=== PATIENT | female | born 1960 | race Caucasian/White ===

== ENCOUNTER 2016-12-29 10:24 | Emergency (ER) | payer BC, SELFPAY | END 2016-12-29 12:46 | disposition home or self-care (01) | LOC: ERS 10:24 | DX: J11.1 Influenza due to unidentified influenza virus with other respiratory manifestations (principal); E03.9 Hypothyroidism, unspecified; E78.5 Hyperlipidemia, unspecified; E11.9 Type 2 diabetes mellitus without complications; F32.9 Major depressive disorder, single episode, unspecified; F17.210 Nicotine dependence, cigarettes, uncomplicated | CPT/HCPCS: 87081; 87430; 99283 ==

== ENCOUNTER 2017-01-09 06:44 | Emergency (ER) | payer SELFPAY ==
[2017-01-09] MEDS ORDERED: Ibuprofen 800 MG TAB ONE (07:15)
== END 2017-01-09 08:18 | disposition home or self-care (01) ==
LOC: ERS 06:44
DX: J02.9 Acute pharyngitis, unspecified (principal); E03.9 Hypothyroidism, unspecified; E78.5 Hyperlipidemia, unspecified; E11.9 Type 2 diabetes mellitus without complications; F32.9 Major depressive disorder, single episode, unspecified; F17.210 Nicotine dependence, cigarettes, uncomplicated
CPT/HCPCS: 87081; 87430; 99283

== ENCOUNTER 2017-05-15 05:21 | Emergency (ER) | payer SELFPAY ==
[2017-05-15] MEDS ORDERED: Dexamethasone 4 mg/ml Vial ONE (07:16)
== END 2017-05-15 07:45 | disposition home or self-care (01) ==
LOC: ERS 05:21
DX: J02.9 Acute pharyngitis, unspecified (principal); E03.9 Hypothyroidism, unspecified; E78.5 Hyperlipidemia, unspecified; E11.9 Type 2 diabetes mellitus without complications; F32.9 Major depressive disorder, single episode, unspecified; F17.210 Nicotine dependence, cigarettes, uncomplicated; Z79.84 Long term (current) use of oral hypoglycemic drugs; Z79.899 Other long term (current) drug therapy
CPT/HCPCS: 36416; 87081; 87430; 96372; J1100

== ENCOUNTER 2017-11-03 07:05 | Emergency (ER) | payer OTHER, SELFPAY ==
[2017-11-03] MEDS ORDERED: diphenhydrAMINE 50 MG/ML VIAL ONE (07:50)
[2017-11-03] MEDS ORDERED: Metoclopramide HCl 10 MG/2 ML VIAL ONE (07:50)
[2017-11-03] MEDS ORDERED: Ketorolac Tromethamine 30 MG/ML VIAL ONE (07:50)
== END 2017-11-03 09:23 | disposition home or self-care (01) ==
LOC: ERS 07:05
DX: G43.909 Migraine, unspecified, not intractable, without status migrainosus (principal); E03.9 Hypothyroidism, unspecified; E78.5 Hyperlipidemia, unspecified; E11.9 Type 2 diabetes mellitus without complications; F32.9 Major depressive disorder, single episode, unspecified; F17.210 Nicotine dependence, cigarettes, uncomplicated; Z79.899 Other long term (current) drug therapy; Z79.84 Long term (current) use of oral hypoglycemic drugs
CPT/HCPCS: 96365; 96375; J1200; J1885; J2765

== ENCOUNTER 2018-08-15 07:38 | Emergency (ER) | payer OTHER ==
--- NOTE | 2018-08-15 08:45 | RAD ---
XR Chest Pa Lat STANDARD HISTORY: Cough COMPARISON: 07/14/2016 FINDINGS: The heart size is normal. The lungs are well expanded without focal areas of consolidation, pneumothorax or pleural effusions. There is linear scarring in the right lower lung. IMPRESSION: No radiographic evidence of acute cardiopulmonary process.
== END 2018-08-15 09:21 | disposition home or self-care (01) ==
LOC: ERS 07:38
DX: J20.9 Acute bronchitis, unspecified (principal); F32.9 Major depressive disorder, single episode, unspecified; F17.210 Nicotine dependence, cigarettes, uncomplicated
CPT/HCPCS: 71046

== ENCOUNTER 2018-09-30 22:46 | Inpatient (IN) | payer OTHER, SELFPAY ==
--- NOTE | 2018-09-30 23:40 | RAD ---
Exam: Chest one view HISTORY:Fever Comparison: 07/14/2016, 08/15/2018 FINDINGS: Cardiac silhouette:Upper normal Pulmonary vessels: Normal Costophrenic angles: Clear LUNGS: Chronic changes of the lung parenchyma. Superimposed interstitial opacities. Stable mild eleva tion of the right hemidiaphragm. Pneumothorax: None Osseous abnormalities: None IMPRESSION: 1. Chronic changes along parenchyma. Superimposed interstitial opacities may represent infiltrate. 2. Continued surveillance.
[2018-09-30 23:43] LABS: #Lymphocytes 3.6 thou/uL (1.20-3.40); #Monocytes 1.6 thou/uL (0.11-0.59); #Neutrophils 12.8 thou/uL (1.40-6.50); %Basophils 0.2 % (0.0-1.0); %Eosinophils 0.2 % (0.0-10.0); %Lymphocytes 19.7 % (21.0-51.0); %Monocytes 8.8 % (0.0-10.0); Hemoglobin 9.9 g/dL (12.0-16.0); Mean Corpuscular HGB CONC 31.2 g/dL (32.0-36.0); Mean Corpuscular Hemoglobin 23.6 pg (27.0-31.0); Mean Corpuscular Volume 75.5 fL (78.0-98.0); Mean Platelet Volume 8.1 fL (7.4-10.4); Platelet Count 263 thou/uL (130-400); RBC Distribution Width 14.9 % (11.5-14.5); Red Blood Cell (RBC) Count 4.18 mill/uL (4.20-5.40); White Blood Cell (WBC) Count 18.1 thou/uL (4.8-10.8)
[2018-09-30] MEDS ORDERED: diphenhydrAMINE 50 MG/ML VIAL ONE (23:49)
[2018-09-30] MEDS ORDERED: Metoclopramide HCl 10 MG/2 ML VIAL ONE (23:49)
[2018-10-01 00:06] LABS: ALT (SGPT) 29 U/L (8-55); AST (SGOT) 37 U/L (5-34); Albumin 3.5 g/dL (3.5-5.0); Alkaline Phosphatase 130 U/L (40-150); Anion Gap 10 mmol/L (10-20); BUN (Urea Nitrogen) 11 mg/dL (9.8-20.1); Bilirubin, Total 0.7 mg/dL (0.2-1.2); Calc. Creatinine Clearance 0 mL/min (70-130); Calcium 8.9 mg/dL (7.8-10.44); Carbon Dioxide 23 mmol/L (22-29); Chloride 102 mmol/L (98-107); Estimated GFR-MDRD 80; Glucose 115 mg/dL (70-105); Protein, Total 7.5 g/dL (6.0-8.3); Sodium 131 mmol/L (136-145)
[2018-10-01 00:14] LABS: Bilirubin Negative (Negative); Blood, Urine Negative (Negative); Clarity Clear (Clear); Glucose, Urine (Dipstick) Normal (Negative); Leukocyte Negative Leu/uL (Negative); Nitrite Negative (Negative); Protein, Urine (Dipstick) 20 mg/dL (Neg-Trace); Urobilinogen Greater than 12 mg/dL (Less than 2)
[2018-10-01] MEDS ORDERED: Azithromycin 500 MG VIAL ONE (01:34)
[2018-10-01] MEDS ORDERED: cefTRIAXone\\ROCEPHIN 2 GM VIAL ONE (01:34)
--- NOTE | 2018-10-01 07:27 | CT ---
PRELIMINARY REPORT/[facility]/EMERGENCY AFTER HOURS PROCEDURE: EXAM: CT Head Without Contrast EXAM DATE/TIME: 10/01/2018 12:32 AM CLINICAL HISTORY: 58 years old, female; Headache; Patient HX: Patient presents for worsening migraine that began yesterday. Pain is on both sides of head, intermittent, aching. Took Tylenol yesterday. Pain now 8/10 . Has not had a migraine in years. Reports photophobia. No vision changes or phonophobia. Improves with laying down, dark room. Worsens with sitting up. Also notes fever/chills/sweating that began yesterday as well. No neck rigidity or pain. Has chronic cough, no change in sputum. TECHNIQUE: Imaging protocol: Axial computed tomography images of the head without contrast. COMPARISON: No relevant prior studies available. FINDINGS: Brain: Minimal chronic small vessel ischemic change. No brain edema. No intracranial hemorrhage. Ventricles: Normal. No ventriculomegaly. Bones/joints: Unremarkable. No acute fracture. Sinuses: Visualized sinuses are unremarkable. No fluid levels. Mastoid air cells: Visualized mastoid air cells are well aerated. No mastoid effusion. Soft tissues: Unremarkable. IMPRESSION: No acute brain findings. Thank you for allowing us to participate in the care of your patient. Dictated and Authenticated by: Chandrakant Yarbrough MD 10/01/2018 12:41 AM Central Time ([place] & [place]) FINAL REPORT BRAIN CT WITHOUT IV CONTRAST: Emergency after exam 12:33 AM 10/01/2018 COMPARISON: 08/01/2012 IMPRESSION: No significant acute process. This report is in agreement with the preliminary report. Transcribed Date/Time: 10/01/2018 8:23 AM
--- NOTE | 2018-10-01 07:41 | CT ---
PRELIMINARY REPORT/[facility]/EMERGENCY AFTER HOURS PROCEDURE: EXAM: CT Angiography Head With Contrast EXAM DATE/TIME: 10/01/2018 2:38 AM CLINICAL HISTORY: 58 years old, female; Headache; Patient HX: Patient presents for worsening migraine that began yesterday. Pain is on both sides of head, intermittent, aching. Took Tylenol yesterday. Pain now 8/10 . Has not had a migraine in years. Reports photophobia. No vision changes or phonophobia. Improves with laying down, dark room. Worsens with sitting up. Also notes fever/chills/sweating that began yes terday as well. No neck rigidity or pain. Has chronic cough, no change in sputum. location. TECHNIQUE: Imaging protocol: Axial computed tomographic angiography images of the head with intravenous contrast using CT angiography protocol. Coronal and sagittal reformatted images were created and revi ewed. COMPARISON: No relevant prior studies available. FINDINGS: Right internal carotid artery: Atherosclerotic calcification of the intracranial portion of the right internal carotid artery without luminal narrowing. Right anterior cerebral artery: Unremarkable. No occlusion or significant stenosis. No aneurysm. Right middle cerebral artery: Unremarkable. No occlusion or significant stenosis. No aneurysm. Right posterior cerebral artery: Unremarkable. No occlusion or significant stenosis. No aneurysm. Right vertebral artery: Unremarkable. No occlusion or significant stenosis. No aneurysm. Left internal carotid artery: Atherosclerotic calcification of the intracranial portion of the left i nternal carotid artery without luminal narrowing. Left anterior cerebral artery: Unremarkable. No occlusion or significant stenosis. No aneurysm. Left middle cerebral artery: Unremarkable. No occlusion or significant stenosis. No aneurysm. Left posterior cerebral artery: Unremarkable. No occlusion or significant stenosis. No aneurysm. Left vertebral artery: Unremarkable. No occlusion or significant stenosis. No aneurysm. Basilar artery: Unremarkable. No occlusion or significant stenosis. No aneurysm. Other vasculature: Suboptimal but adequate contrast bolus. HEAD: Orbits: Symmetric bilateral ocular proptosis. No extraocular muscle thickening. IMPRESSION: 1. No acute vascular findings. 2. Symmetric bilateral ocular proptosis. No extraocular muscle thickening. CT Angiography Neck With Contrast EXAM DATE/TIME: 10/01/2018 2:38 AM CLINICAL HISTORY: 58 years old, female; Headache; Patient HX: Patient presents for worsening migraine that began yesterday. Pain is on both sides of head, intermittent, aching. Took Tylenol yesterday. Pain now 8/10 . Has not had a migraine in years. Reports photophobia. No vision changes or phonophobia. Improves with laying down, dark room. Worsens with sitting up. Also notes fever/chills/sweating that began yes terday as well. No neck rigidity or pain. Has chronic cough, no change in sputum location. TECHNIQUE: Imaging protocol: Axial computed tomographic angiography images of the neck with intravenous contrast using CT angiography protocol. Coronal and sagittal reformatted images were created and revi ewed. COMPARISON: No relevant prior studies available. FINDINGS: VASCULATURE: Right common carotid artery: Unremarkable. No stenosis. No dissection or occlusion. Right internal carotid artery: Atherosclerosis of the right carotid bulb and proximal right internal carotid artery with less than 50% luminal narrowing. No thrombosis or occlusion. Right external carotid artery: Unremarkable. No occlusion or stenosis of the origin. Right vertebral artery: Right vertebral artery terminates as an inferior cerebellar artery. Left common carotid artery: Unremarkable. No stenosis. No dissection or occlusion. Left internal carotid artery: Atherosclerosis of the left carotid bulb and proximal left internal car otid artery with no significant luminal narrowing. No thrombosis or occlusion. Left external carotid artery: Unremarkable. No occlusion or stenosis of the origin. Left vertebral artery: Unremarkable. No stenosis. No dissection or occlusion. Other vasculature: Suboptimal but adequate contrast bolus. NECK: Bones/joints: No acute fracture. Soft tissues: Normal. No significant soft tissue swelling. Lymph nodes: Mediastinal lymphadenopathy which does not exceed 1 cm in short axis. IMPRESSION: No acute vascular findings. COMMENT: Reference per NASCET criteria for degree of stenosis: Mild: less than 50% stenosis. Moderate: 50-69% stenosis. Severe: 70-94% stenosis. Near occlusion: 95-99% stenosis. Thank you for allowing us to participate in the care of your patient. Dictated and Authenticated by: Chandrakant Yarbrough MD 10/01/2018 3:00 AM Central Time ([place] & [place]) FINAL REPORT: Exam: HEAD CT ANGIOGRAM WITH 3D RENDERING NECK CT ANGIOGRAM WITH 3D RENDERING: HEAD CT ANGIOGRAM WITH 3D RENDERING: No evidence for an aneurysm or major branch occlusion. NECK CT ANGIOGRAM WITH 3D RENDERING: Atherosclerotic calcific plaques of both carotid arteries with less than 50% stenosis of the right an d left proximal ICAs using NASCET criteria. This report is in agreement with a preliminary report. Transcribed Date/Time: 10/01/2018 7:56 AM
[2018-10-01] MEDS ORDERED: Dextrose 5% in Water 1,000 ML IV PRN (10:57)
[2018-10-01] MEDS ORDERED: Dextrose 50% Abboject 50 ML SYRINGE SLOW IVP PRN (10:57)
--- NOTE | 2018-10-01 11:17 | HP ---
PRIMARY CARE PHYSICIAN: Dr. Varela. CHIEF COMPLAINT: Headache, fever, and chills. HISTORY OF PRESENT ILLNESS: The patient is a 58-year-old female, who started having some headaches yesterday and she developed some fever and chills subsequently, came to the emergency room, was found to have maximal temperature of 100.8, but at home she said it was 102.8. She denied any cough, chest pain, shortness of breath, nausea, vomiting, abdominal pain, or diarrhea. She had headache, which felt like her old migraine headache, but she did not have any migraine headaches for a long time, but she has a history of that. She was photophobic. She was offered LP, but she declined it. She denies any dysuria. She urinates without any problems. She is getting admitted to the hospital for further evaluation of her problem. PAST MEDICAL HISTORY: Positive for; 1. Diabetes mellitus. 2. Hyperlipidemia. 3. Hypothyroidism. PAST SURGICAL HISTORY: 1. Cholecystectomy. 2. section x3. 3. Hysterectomy. PSYCHIATRIC HISTORY: Depression. SOCIAL HISTORY: She drinks socially every week. She denies any illicit drug use. She smokes half a pack of cigarettes per day for long time. She lives at home with the family. She is . Her is the surrogate decision maker. FAMILY HISTORY: Father had diabetes and CHF, and he passed at the age of 75 of brain hemorrhage. Mother had CVA and passed at the age of 67. ALLERGIES: CODEINE. MEDICATIONS: 1. Albuterol 2 puffs q.2 hours p.r.n. as needed. 2. Metformin 500 mg, unknown frequency. 3. Glyburide 2.5 mg, unknown frequency. 4. Meloxicam 15 mg once a day. 5. Losartan 25 mg once a day. 6. Levothyroxine 25 mcg once a day. 7. Aspirin 81 mg once a day. REVIEW OF SYSTEMS: CONSTITUTIONAL: Positive for fever and chills. EYES: Negative for eye pain or eye discharge. ENT: Negative for nasal congestion or epistaxis. CARDIOVASCULAR: Negative for chest pain or palpitations. RESPIRATORY: Negative for shortness of breath. Positive for cough. She says that she has a smoker's cough. GI: Negative for nausea, vomiting, or abdominal pain. GENITOURINARY: Negative for dysuria or hematuria. MUSCULOSKELETAL: Negative for pain, muscles, or joints. SKIN: Negative for rash or erythema. NEUROLOGIC: Positive for headache. Negative for any focal deficits. HEMOLYMPHATIC: Negative for easy bruising or clotting abnormalities. ALLERGIES: Negative for allergies, except for the codeine. PHYSICAL EXAMINATION: VITAL SIGNS: Blood pressure is 100/43; pulse is 76; respiratory rate is 22, it was up to 34 during this emergency room evaluation. She is on 1 L of nasal cannula. She is saturating between 92% and 95%. HEENT: Head is atraumatic and normocephalic. Eyes are PERRLA. Sclerae are nonicteric. Conjunctivae are pinkish. Oral mucosa is dry. NECK: Supple. No lymphadenopathy. Thyroid is not palpable. LUNGS: Clear except for diminished breath sounds at both bases. HEART: S1 and S2 normal. No S3. No S4. No any murmur. ABDOMEN: Soft and nontender. Bowel sounds are present. No organomegaly. EXTREMITIES: No clubbing, cyanosis, or edema. NEUROLOGIC: She is alert and oriented x4. There are no any motor or sensory deficits present. Cranial nerves are intact. Extraocular movements within normal limits. Visual sawant within normal limits. Neck is not stiff. She has normal seam steamer. Normal strength in upper and lower extremities. Meningitis signs are negative on physical examination. LABORATORY DATA: Labs showed white count of 18.1, hemoglobin of 9.9, hematocrit 31.6, platelet count is 263,000, neutrophils 71, no bands. Sodium of 131, potassium 4.0, chloride 102, CO2 of 23, BUN 11, creatinine 0.75, glucose 115. Lactic acid 0.9. AST 37. Globulin 4.0. Urinalysis showed urobilinogen greater than 12. IMAGING STUDIES: Chest x-ray personally reviewed by me showed bilateral interstitial opacities, mild elevation of the right hemidiaphragm. Brain CT did not show any acute abnormalities. CT angiogram with contrast of vascular system of the neck and head, personally reviewed by me showed; 1. No acute vascular findings. 2. Symmetric bilateral ocular proptosis. No extraocular muscle thickening. IMPRESSION: 1. Fever, chills, hypotension with elevated white count, possible sepsis, unclear source. 2. Tachypnea at the time of evaluation with a questionable findings on the chest x-ray, rule out community-acquired pneumonia. 3. Diabetes mellitus. 4. Hypothyroidism. 5. Hypertension. PLAN: Admission to IM since she is still hypotensive. She received 1 L of fluids. We will give her additional bolus of normal saline 500 to keep her systolic blood pressure above 100. We will continue her Rocephin 2 g every 24 hours. She received the first dose in the emergency room and will continue azithromycin 500 mg IV piggyback every 24 hours. Also, she received the first dose in the emergency room. As mentioned above, she refused the LP. The case was discussed with Dr. Doherty, who recommends to continue antibiotics. She will be admitted to [facility]. Condition is guarded. She is do not resuscitate per her wishes. IV fluids at 100 mL/h, normal saline after the bolus of 500 in the emergency room. 2000 calories ADA diet. Humalog coverage for mild sliding scale. A.c. and at bedtime Accu-Cheks. DVT prophylaxis with Lovenox and SCDs, and PUD prophylaxis with Pepcid. We will continue her levothyroxine, DuoNebs four times a day, and blood culture and urine cultures were done in the emergency room. Job ID: [id number]
[2018-10-01 11:37] VITALS: BMI 42.8
[2018-10-01] MEDS ORDERED: ISOVUE-370 76%-LOCM 1 ML ONE (12:06)
[2018-10-01] MEDS: Sodium Chloride 0.9% 1,000 ML IV SCH ×2 (18:13→19:00)
[2018-10-01] MEDS: Famotidine 20 MG TAB PO SCH (20:41)
[2018-10-01] MEDS: Enoxaparin Sodium 40 MG/0.4 ML SYRINGE SC SCH (20:41)
[2018-10-01] MEDS: Acetaminophen 325 MG TAB PO PRN (20:44)
[2018-10-02] MEDS ORDERED: Azithromycin 500 MG in Sodium Chloride 0.9% 250 ML 250 ML IVPB SCH (01:00)
[2018-10-02] MEDS ORDERED: cefTRIAXone\\ROCEPHIN 2 GM in Sodium Chloride 0.9% 100 ML IVPB SCH (02:00)
[2018-10-02] MEDS: Sodium Chloride 0.9% 1,000 ML IV SCH ×2 (02:32→09:50)
[2018-10-02 04:58] LABS: #Basophils 0.1 thou/uL (0.0-0.2); #Eosinphils 0.2 thou/uL (0.0-0.7); #Monocytes 0.9 thou/uL (0.11-0.59); #Neutrophils 5.7 thou/uL (1.40-6.50); %Basophils 0.6 % (0.0-1.0); %Eosinophils 2.1 % (0.0-10.0); %Lymphocytes 30.7 % (21.0-51.0); %Monocytes 8.9 % (0.0-10.0); %Neutrophils 57.7 % (42.0-75.0); Hemoglobin 9.1 g/dL (12.0-16.0); Mean Corpuscular HGB CONC 30.5 g/dL (32.0-36.0); Mean Corpuscular Hemoglobin 23.3 pg (27.0-31.0); Mean Corpuscular Volume 76.4 fL (78.0-98.0); Platelet Count 246 thou/uL (130-400); Red Blood Cell (RBC) Count 3.91 mill/uL (4.20-5.40); White Blood Cell (WBC) Count 9.8 thou/uL (4.8-10.8)
[2018-10-02 05:11] LABS: Anion Gap 9 mmol/L (10-20); BUN (Urea Nitrogen) 8 mg/dL (9.8-20.1); Calc. Creatinine Clearance 170 mL/min (70-130); Calcium 8.3 mg/dL (7.8-10.44); Carbon Dioxide 24 mmol/L (22-29); Chloride 109 mmol/L (98-107); Estimated GFR-MDRD Greater than 90; Glucose 123 mg/dL (70-105); Sodium 138 mmol/L (136-145)
[2018-10-02] MEDS: Levothyroxine Sodium 25 MCG TAB PO SCH (06:06)
[2018-10-02] MEDS: Acetaminophen 325 MG TAB PO PRN ×2 (06:12→15:26)
--- NOTE | 2018-10-02 08:01 | RAD ---
EXAM: Chest Two Views 10/02/2018 8:00 AM HISTORY: Concern for pneumonia COMPARISON: Chest radiograph dated September 30, 2018 FINDINGS: Heart: Normal in size and contour. Pulmonary vessels: Normal. Costophrenic angles: Clear. Lungs: There is airspace opacity present within the right lower lobe with some elevation of the right hemidiaphragm suspicious for volume loss. A component of pneumonia cannot be entirely excluded but is felt to be less likely. Left lung is clear. Pneumothorax: None. Osseous structures:Intact. Additional findings: None. IMPRESSION: Right lower lobe airspace opacity as well as elevation of the right hemidiaphragm suspicious for subs egmental volume loss. A component of pneumonia cannot be entirely excluded. Recommend correlation with the clinical examination and radiographic follow-up to resolution Transcribed Date/Time: 10/02/2018 8:07 AM
[2018-10-02] MEDS: Famotidine 20 MG TAB PO SCH ×2 (09:09→21:07)
[2018-10-02] MEDS: HumaLOG 300 UNITS/3 ML VIAL SC PRN ×2 (12:19→21:10)
[2018-10-02 13:03] LABS: Iron 21 ug/dL (50-170); Iron Binding Capacity, Total 404 mcg/dL (265-497)
--- NOTE | 2018-10-02 15:14 | PRG ---
DATE OF SERVICE: 10/02/2018 SUBJECTIVE: The patient is seen and examined at the bedside. She feels somewhat better. She had good night. OBJECTIVE: VITAL SIGNS: Blood pressure is 107/52; pulse is 72; respiratory rate is 15 on room air; temperature maximal at night was 98.4, now is 97.8. HEENT: Head is atraumatic, normocephalic. Eyes are PERRLA. Sclerae are nonicteric. Oral mucosa is moist. NECK: Supple. LUNGS: Right base sounds diminished with few crackles. HEART: S1, S2 normal. No S3. No S4. ABDOMEN: Soft, nontender. Bowel sounds are present. No organomegaly. EXTREMITIES: No clubbing, cyanosis, or edema. NEUROLOGICAL: She is alert and oriented x4. There is no any motor or sensory deficits. LABORATORY DATA: Labs showed white count of 9.8, hemoglobin 9.1, hematocrit 29.9, platelet count is 246,000. Sodium is 138, potassium 4.0, chloride 109, CO2 of 24, BUN 8, creatinine 0.64, glycemia is ranging from 147 to 222, iron is 21, total iron binding capacity is 404, saturation is 5, and ferritin is 23.3. IMPRESSION: 1. Fever with some changes on her x-ray with followup x-ray done this morning showing possible infiltrate in the right lower lobe. She is treated as a community-acquired pneumonia. 2. Diabetes mellitus. 3. Hypothyroidism. 4. Hypertension. PLAN: Plan is to continue her current regimen with Rocephin and Zithromax. She has some iron-deficiency anemia. We will check her guaiac, and if she is positive, we will have to get GI involved to do the scoping. If not, she will follow up with the Primary after the discharge, which is anticipated for tomorrow. Job ID: [id number]
[2018-10-02] MEDS: metFORMIN 500 MG TAB PO SCH (16:21)
--- NOTE | 2018-10-02 17:27 | CON ---
DATE OF CONSULTATION: 10/02/2018 REASON FOR CONSULTATION: Fever and general malaise. HISTORY OF PRESENT ILLNESS: A 58-year-old with history of type 2 diabetes, obesity, and chronic smoking, who was in her usual state until the day of admission when she developed progressively worsening headaches and chills. She has a chronic cough , which was unchanged. No visual symptoms. No sore throat or dental pain. No back pain. No chest pain. No abdominal pain or diarrhea. No genitourinary symptoms. No joint symptoms or skin disorder. No neurological symptoms. The patient was brought to the emergency room. She declined an LP and started on Rocephin, now has improved markedly. Headache has resolved. Denies any visual symptoms, sore throat, odynophagia, or dysphagia. Other 10-point review of systems is normal. PAST MEDICAL HISTORY: Type 2 diabetes, hyperlipidemia, hypothyroidism, and obesity. PAST SURGICAL HISTORY: Cholecystectomy, , and hysterectomy. PAST PSYCHIATRIC HISTORY: Depression. SOCIAL HISTORY: Drinks occasionally. Smokes daily. Lives with in [place]. Recently traveled to [place] to [facility]. FAMILY HISTORY: Type 2 diabetes, coronary artery disease, and CVA. ALLERGIES: CODEINE. CURRENT MEDICATIONS: 1. Inhalers. 2. Lipitor. 3. Wellbutrin. 4. She had been on azithromycin and Rocephin. 5. Glyburide. 6. Insulin. 7. Cozaar. 8. Glucophage. PHYSICAL EXAMINATION: VITAL SIGNS: T-max 98.2, blood pressure 107/52, pulse 72, respirations 15, and O2 saturation 94. SKIN: Normal. There is no lymphadenopathy. Peripheral IV access. No urinary catheterization. HEENT: Ocular movements are conjugate. Oral cavity with quite a few teeth in place with some decay. NECK: Supple. No jugular vein distention or carotid bruits. LUNGS: With basilar crackles on the left side, mild. HEART: S1 and S2. Regular rate. No murmurs. No S3 or S4. ABDOMEN: Soft and not distended or tender. No ascites. No bladder distention. EXTREMITIES: No joint inflammatory activity. NEURO: Nonfocal. Plantar response are flexor. No clonus. Moves extremities equally. Cognitive function appears to be intact. LABORATORY DATA: Sodium was 138 and now is normal, creatinine is down to 0.64 and it was normal on admission, mild elevation of AST at 37, globulin 4.0, and albumin 3.5. Urinalysis was normal. Two sets of blood cultures, no growth thus far. Chest x-ray shows right lower lobe airspace opacity, possible subsegmental volume loss versus early pneumonitis. Brain CT was not remarkable. CT [place] angiogram and with contrast with no findings of significance. ASSESSMENT: Type 2 diabetes with new onset of febrile illness with headaches, which have improved. She was treated with antimicrobial therapy and the only abnormality include a mild changes in liver function tests and mild abnormality in the chest x-ray. DISCUSSION: The signs are very subtle and not firmly diagnostic, but I would advise treating as if she had an early pneumonia with doxycycline. I would not recommend any testing other than the empiric treatment at this point in time. The likelihood of primary central nervous system infection is very low. No evidence of intraabdominal inflammatory process or genitourinary tract or joint or skin disorder at this point in time. Consider discharge planning on doxycycline for few days. Job ID: [id number] [facility]ITAL[facility]
[2018-10-02] MEDS: glyBURIDE 5 MG TAB PO SCH (21:07)
[2018-10-02] MEDS: Enoxaparin Sodium 40 MG/0.4 ML SYRINGE SC SCH (21:07)
[2018-10-02] MEDS: Doxycycline 100 MG CAP PO SCH (21:07)
[2018-10-03] MEDS: Acetaminophen 325 MG TAB PO PRN (05:31)
[2018-10-03] MEDS: Levothyroxine Sodium 25 MCG TAB PO SCH (05:32)
[2018-10-03] MEDS ORDERED: Levothyroxine 150 MCG TAB PO SCH (06:00)
[2018-10-03 06:38] LABS: #Basophils 0.1 thou/uL (0.0-0.2); #Eosinphils 0.3 thou/uL (0.0-0.7); #Lymphocytes 2.2 thou/uL (1.20-3.40); #Monocytes 0.6 thou/uL (0.11-0.59); #Neutrophils 4.9 thou/uL (1.40-6.50); %Basophils 0.8 % (0.0-1.0); %Eosinophils 3.3 % (0.0-10.0); %Monocytes 7.1 % (0.0-10.0); %Neutrophils 61.8 % (42.0-75.0); Hemoglobin 9.2 g/dL (12.0-16.0); Mean Corpuscular HGB CONC 30.2 g/dL (32.0-36.0); Mean Corpuscular Hemoglobin 23.1 pg (27.0-31.0); Mean Corpuscular Volume 76.6 fL (78.0-98.0); Platelet Count 257 thou/uL (130-400); Red Blood Cell (RBC) Count 3.99 mill/uL (4.20-5.40)
[2018-10-03] MEDS: metFORMIN 500 MG TAB PO SCH (08:00)
[2018-10-03] MEDS: glyBURIDE 5 MG TAB PO SCH (08:00)
[2018-10-03] MEDS: Famotidine 20 MG TAB PO SCH (08:01)
[2018-10-03] MEDS: Doxycycline 100 MG CAP PO SCH (08:01)
[2018-10-03] MEDS ORDERED: Atorvastatin Calcium 40 MG TAB PO SCH (09:00)
[2018-10-03] MEDS ORDERED: Bupropion 150 MG XL TAB PO SCH (09:00)
[2018-10-03] MEDS ORDERED: Meloxicam 15 MG TAB PO SCH (09:00)
[2018-10-03] MEDS ORDERED: Losartan 25 MG TAB PO SCH (09:00)
[2018-10-03 11:50] VITALS: BP 129/58; TEMP 97.7
--- NOTE | 2018-10-03 12:25 | PQF ---
CLINICAL DOCUMENTATION IMPROVEMENT CLARIFICATION FORM: ICD-10 Updated PLEASE DO AN ADDENDUM TO THE PROGRESS NOTE WITH ANY DOCUMENTATION UPDATES OR ADDITIONS AND CARRY THROUGH TO DC SUMMARY. THANK YOU. DATE: 10/03/18 ATTN: DR. ALFARO Please exercise your independent, professional judgment in responding to the clarification form. Clinical indicators are provided on the bottom of this form for your review Please check appropriate box(s) to clarify if the following diagnosis has been ruled in or ruled out: "SEPSIS" [ ] Ruled in diagnosis [ ] Continue to treat [ ] Resolved [x ] Ruled out diagnosis [ ] Cannot rule out diagnosis [ ] Other diagnosis [ ] Unable to determine In addition, please specify: Present on Admission (POA): [ ] Yes [ ] No [ x ] Unable to determine For continuity of documentation, please document condition throughout progress notes and discharge summary. Thank You. CLINICAL INDICATORS - SIGNS / SYMPTOMS / LABS H&P: "FEVER, CHILLS, HYPOTENSION WITH ELEVATED WHITE COUNT , POSSIBLE SEPSIS, UNCLEAR SOURCE." BP 86/48 RR: 34 WBC 18.1 RISKS: PNEUMONIA TREATMENT: ID CONSULT IV FLUIDS (ER) IV AZITHROMYCIN (ER) VIBRAMYCIN (10/02-PRESENT) IV ROCEPHIN (ER) BLOOD AND STOOL CULTURES [employer] Applications Engineer [employer] Winform Viewer (This form is maintained as a part of the permanent medical record) 2014 [employer]. All Rights Reserved CAS [email or web address] Office: [phone] [facility]
--- NOTE | 2018-10-03 23:05 | DIS ---
DATE OF ADMISSION: 10/01/2018 DATE OF DISCHARGE: 10/03/2018 FINAL DIAGNOSES: 1. Right lower lobe pneumonia. 2. Diabetes mellitus. 3. Hypothyroidism. 4. Iron deficiency anemia with negative guaiac stool. 5. Hypertension. CONSULTANTS: Dr. Doherty, Infectious Diseases Service. HOSPITAL COURSE: The patient was a 58-year-old female, who was admitted to the hospital with headache, fever, and chills. Apparently, she started having some fever and chills one day prior to this hospitalization. Her temperature was up to 102.8 at home. She denied any shortness of breath, nausea, vomiting, chest pain, abdominal pain, or diarrhea. She had a headache with some photophobia, but she felt that this was the migraine, but she did not have migraine for long long time. While in the emergency room getting evaluated, she was offered LP, but she declined it. She denies any dysuria. Her white count at the time of admission was up to 18.1, hemoglobin 9.9, hematocrit 31.6, platelet count 263,000, neutrophils 71, no bands. Sodium 131, potassium 4.0, chloride 102, CO2 of 23, BUN 11, creatinine 0.75, glucose 115, lactic acid 0.9, AST 37, globulin 4.0. Urinalysis showed urobilinogen greater than 12. Chest x-ray showed bilateral interstitial opacities with mild elevation of the right diaphragm. Brain CT did not show any acute abnormalities. CT angiogram with contrast of vascular system of the neck and head showed no acute vascular findings, symmetric bilateral ocular proptosis. The patient's blood pressure while in the emergency room was running on the lower side and she required IV fluids, but this got better after the admission to [facility]. She was continued on Rocephin 2 g every 24 hours along with Zithromax which was started in the emergency room. The patient was seen by Dr. Doherty. He did not a recommend any other diagnostic testing. The followup chest x-ray showed some possible infiltrate in the right lower lobe and the patient was treated as community-acquired pneumonia. She improved quickly. She is showing some anemia on her blood work, which is microcytic. Her guaiac was checked and it came back negative, but her indices are low consistent with iron deficiency anemia. She is seen and evaluated before she is discharged home. PHYSICAL EXAMINATION: VITAL SIGNS: Her blood pressure is 123/60, pulse is 69, temperature is 98.0, respiratory rate 12, O2 saturation is 91% on room air. LUNGS: Clear. HEART: S1 and S2 normal. No S3. No S4. No any murmur. ABDOMEN: Obese, soft, nontender. LABORATORY DATA: Her white count is back to normal and her last hemoglobin is 9.2. DIET AND ACTIVITY: She is discharged home on 2000 calories ADA diet with recommendation for activities as tolerated. HOME MEDICATIONS: 1. Metformin 1000 mg twice a day. 2. Glyburide 5 mg twice a day. 3. Sertraline 50 mg once a day. 4. Meloxicam 15 mg daily. 5. Losartan 50 mg daily. 6. Levothyroxine 150 mcg daily. 7. Bupropion 150 mg daily. 8. Atorvastatin 40 mg daily. 9. Ferrous sulfate 142 mg daily. 10. Doxycycline (Vibramycin) 100 mg twice a day for the next 6 days. FOLLOWUP: She is going to follow up with the primary doctor in a week. TIME SPENT: Time spent on this discharge is less than 30 minutes. Job ID: [id number]
== END 2018-10-03 12:33 | disposition home or self-care (01) | DRG 194 ==
LOC: ERS 22:46 → ERHOLD 10-01 02:20 → IMCU/EMU 10-01 10:49 → 3SE 10-02 08:20
PROVIDERS: ADMIT Internal Medicine; ATTEND Internal Medicine
DX: J18.1 Lobar pneumonia, unspecified organism (principal); Z68.41 Body mass index [BMI] 40.0-44.9, adult; E66.9 Obesity, unspecified; F17.210 Nicotine dependence, cigarettes, uncomplicated; D50.9 Iron deficiency anemia, unspecified; E03.9 Hypothyroidism, unspecified; E78.5 Hyperlipidemia, unspecified; E11.9 Type 2 diabetes mellitus without complications; F32.9 Major depressive disorder, single episode, unspecified; Z90.49 Acquired absence of other specified parts of digestive tract; Z90.710 Acquired absence of both cervix and uterus; Z79.84 Long term (current) use of oral hypoglycemic drugs; Z79.82 Long term (current) use of aspirin; Z79.899 Other long term (current) drug therapy; Z88.5 Allergy status to narcotic agent
CPT/HCPCS: 36415; 36416; 70450; 70496; 70498; 71045; 71046; 80048; 80053; 81003; 82274; 82728; 83540; 83550; 83605; 84145; 85025; 87040; 94640; J0456; J0696; J1200; J1650; J2765; J3490; J7050; J7620; Q9966

== ENCOUNTER 2018-12-06 07:33 | Emergency (ER) | payer OTHER ==
[2018-12-06 08:26] LABS: Bacteria/HPF 1+ HPF (None Seen); Bilirubin Negative (Negative); Blood, Urine Negative (Negative); Clarity Clear (Clear); Glucose, Urine (Dipstick) Normal (Negative); Leukocyte 250 Leu/uL (Negative); Nitrite Negative (Negative); Protein, Urine (Dipstick) Negative (Neg-Trace); RBC/HPF 0-3 HPF (0-3); Urobilinogen Normal mg/dL (Less than 2); WBC/HPF Greater than 50 HPF (0-3)
[2018-12-06 08:52] LABS: #Eosinphils 0.2 thou/uL (0.0-0.7); #Lymphocytes 2.4 thou/uL (1.20-3.40); #Monocytes 0.4 thou/uL (0.11-0.59); #Neutrophils 5.2 thou/uL (1.40-6.50); %Basophils 0.5 % (0.0-1.0); %Eosinophils 2.5 % (0.0-10.0); %Lymphocytes 29.3 % (21.0-51.0); %Monocytes 4.7 % (0.0-10.0); %Neutrophils 63.1 % (42.0-75.0); Hemoglobin 11.2 g/dL (12.0-16.0); Mean Corpuscular HGB CONC 30.4 g/dL (32.0-36.0); Mean Corpuscular Hemoglobin 25.1 pg (27.0-31.0); Mean Corpuscular Volume 82.5 fL (78.0-98.0); Platelet Count 261 thou/uL (130-400); RBC Distribution Width 17.6 % (11.5-14.5); Red Blood Cell (RBC) Count 4.47 mill/uL (4.20-5.40); White Blood Cell (WBC) Count 8.3 thou/uL (4.8-10.8)
[2018-12-06 09:00] LABS: ALT (SGPT) 37 U/L (8-55); AST (SGOT) 47 U/L (5-34); Albumin 3.7 g/dL (3.5-5.0); Alkaline Phosphatase 155 U/L (40-150); Anion Gap 10 mmol/L (10-20); BUN (Urea Nitrogen) 13 mg/dL (9.8-20.1); Bilirubin, Total 0.3 mg/dL (0.2-1.2); Calc. Creatinine Clearance 0 mL/min (70-130); Calcium 9.4 mg/dL (7.8-10.44); Carbon Dioxide 27 mmol/L (22-29); Chloride 104 mmol/L (98-107); Estimated GFR-MDRD 80; Glucose 178 mg/dL (70-105); Potassium 4.4 mmol/L (3.5-5.1); Protein, Total 7.7 g/dL (6.0-8.3); Sodium 137 mmol/L (136-145)
== END 2018-12-06 09:26 | disposition home or self-care (01) ==
LOC: ERS 07:33
DX: N39.0 Urinary tract infection, site not specified (principal); I10 Essential (primary) hypertension; E11.9 Type 2 diabetes mellitus without complications; Z87.891 Personal history of nicotine dependence
CPT/HCPCS: 36415; 80053; 81003; 81015; 85025; 99283

== ENCOUNTER 2018-12-27 12:00 | Emergency (ER) | payer OTHER ==
[2018-12-27 12:43] LABS: Bilirubin Negative (Negative); Blood, Urine 3+ (Negative); Clarity Turbid (Clear); Glucose, Urine (Dipstick) 100 mg/dL (Negative); Leukocyte 250 Leu/uL (Negative); Nitrite Negative (Negative); Protein, Urine (Dipstick) 100 mg/dL (Neg-Trace); RBC/HPF Greater than 50 HPF (0-3)
[2018-12-27 12:44] LABS: #Basophils 0.1 thou/uL (0.0-0.2); #Eosinphils 0.2 thou/uL (0.0-0.7); #Monocytes 0.6 thou/uL (0.11-0.59); #Neutrophils 5.5 thou/uL (1.40-6.50); %Basophils 1.2 % (0.0-1.0); %Eosinophils 2.1 % (0.0-10.0); %Lymphocytes 32.1 % (21.0-51.0); %Monocytes 5.9 % (0.0-10.0); %Neutrophils 58.6 % (42.0-75.0); Hemoglobin 11.4 g/dL (12.0-16.0); Mean Corpuscular HGB CONC 32.8 g/dL (32.0-36.0); Mean Corpuscular Hemoglobin 26.9 pg (27.0-31.0); Platelet Count 269 thou/uL (130-400); RBC Distribution Width 15.5 % (11.5-14.5); Red Blood Cell (RBC) Count 4.22 mill/uL (4.20-5.40); White Blood Cell (WBC) Count 9.3 thou/uL (4.8-10.8)
[2018-12-27 12:56] LABS: WBC/HPF 21-50 HPF (0-3)
[2018-12-27 12:57] LABS: Bacteria/HPF Rare-Few HPF (None Seen)
[2018-12-27 13:09] LABS: ALT (SGPT) 36 U/L (8-55); AST (SGOT) 43 U/L (5-34); Albumin 3.7 g/dL (3.5-5.0); Alkaline Phosphatase 146 U/L (40-110); Anion Gap 12 mmol/L (10-20); BUN (Urea Nitrogen) 13 mg/dL (9.8-20.1); Bilirubin, Total 0.3 mg/dL (0.2-1.2); Calc. Creatinine Clearance 0 mL/min (70-130); Calcium 9.3 mg/dL (7.8-10.44); Carbon Dioxide 23 mmol/L (22-29); Chloride 105 mmol/L (98-107); Estimated GFR-MDRD 79; Globulin 4.3 g/dL (2.4-3.5); Glucose 237 mg/dL (70-105); Potassium 4.1 mmol/L (3.5-5.1); Sodium 136 mmol/L (136-145)
[2018-12-27 14:39] LABS: Bilirubin Negative (Negative); Blood, Urine 3+ (Negative); Clarity Turbid (Clear); Glucose, Urine (Dipstick) 30 mg/dL (Negative); Leukocyte 250 Leu/uL (Negative); Mucous/LPF Rare LPF (<2+); Nitrite Negative (Negative); Protein, Urine (Dipstick) 30 mg/dL (Neg-Trace); RBC/HPF Greater than 50 HPF (0-3); Squamous Epithelial 0-3 HPF (0-3); Urobilinogen Normal mg/dL (Less than 2); WBC/HPF Greater than 50 HPF (0-3)
[2018-12-27 14:49] LABS: Bacteria/HPF None Seen HPF (None Seen)
== END 2018-12-27 15:03 | disposition home or self-care (01) ==
LOC: ERS 12:00
DX: N39.0 Urinary tract infection, site not specified (principal); E11.65 Type 2 diabetes mellitus with hyperglycemia; R31.9 Hematuria, unspecified; E03.9 Hypothyroidism, unspecified; E78.5 Hyperlipidemia, unspecified; F32.9 Major depressive disorder, single episode, unspecified; Z87.891 Personal history of nicotine dependence
CPT/HCPCS: 36415; 51701; 80053; 81003; 81015; 85025; 87077; 87086; 87186; A4353

== ENCOUNTER 2019-01-03 07:23 | Emergency (ER) | payer OTHER ==
--- NOTE | 2019-01-03 09:42 | RAD ---
PORTABLE CHEST ONE VIEW: 01/03/2019 8:18 a.m. HISTORY: Cough. Congestion. COMPARISON: 10/02/2018 FINDINGS: The heart size is normal. The aorta is tortuous. There is minimal scarring in the right lung base. No lobar consolidation, pneumothoraces or pleural effusions are seen. IMPRESSION: No acute process. POS: OFF
== END 2019-01-03 08:53 | disposition home or self-care (01) ==
LOC: ERS 07:23
DX: J06.9 Acute upper respiratory infection, unspecified (principal); E03.9 Hypothyroidism, unspecified; E78.5 Hyperlipidemia, unspecified; E11.9 Type 2 diabetes mellitus without complications; Z79.899 Other long term (current) drug therapy; Z79.84 Long term (current) use of oral hypoglycemic drugs
CPT/HCPCS: 71045

== ENCOUNTER 2019-01-07 07:37 | Emergency (ER) | payer OTHER ==
--- NOTE | 2019-01-07 09:15 | RAD ---
CHEST TWO VIEWS: COMPARISON: 10/02/2018 01/03/2019 FINDINGS: Atherosclerosis of the aortic knob. Normal cardiac silhouette. Pleural spaces are clear. Persistent l inear opacity in the right lung base, likely representing subsegmental atelectasis or scar. No pneumo thorax or osseous abnormalities. IMPRESSION: Chronic changes. No acute cardiopulmonary process. POS: GIOVANNA
== END 2019-01-07 08:35 | disposition home or self-care (01) ==
LOC: ERS 07:37
DX: J02.9 Acute pharyngitis, unspecified (principal); E03.9 Hypothyroidism, unspecified; E78.5 Hyperlipidemia, unspecified; E11.9 Type 2 diabetes mellitus without complications; F41.9 Anxiety disorder, unspecified; F32.9 Major depressive disorder, single episode, unspecified; F17.210 Nicotine dependence, cigarettes, uncomplicated
CPT/HCPCS: 71046; 99281

== ENCOUNTER 2019-04-13 08:10 | Emergency (ER) | payer OTHER | END 2019-04-13 08:36 | disposition home or self-care (01) | LOC: ERS 08:10 | DX: M25.572 Pain in left ankle and joints of left foot (principal); F41.9 Anxiety disorder, unspecified; F32.9 Major depressive disorder, single episode, unspecified; E03.9 Hypothyroidism, unspecified; E11.9 Type 2 diabetes mellitus without complications; E78.5 Hyperlipidemia, unspecified; F17.210 Nicotine dependence, cigarettes, uncomplicated | CPT/HCPCS: 99283 ==

== ENCOUNTER 2019-05-05 15:17 | Inpatient (IN) | payer OTHER, SELFPAY ==
[2019-05-05] MEDS ORDERED: Aspirin Chewable 81 MG TAB ONE (15:48)
--- NOTE | 2019-05-05 15:53 | RAD ---
PORTABLE CHEST: Comparison: PA and lateral chest, 12-28-2018 History: Chest pain. FINDINGS: There is elevation to the right hemidiaphragm. Heart size is within normal limits for portable techni que. It is difficult to assess the right lower lobe due to the elevated hemidiaphragm. There is quest ionable infiltrate, an PA and lateral chest film would be recommended. IMPRESSION: Elevated right hemidiaphragm making it difficult to assess the right lower lobe for infiltrate. There appears to be some increased density behind the hemidiaphragm and a PA and lateral chest film is rec ommended for assessment. POS: ARIA
[2019-05-05 16:16] LABS: #Basophils 0.1 thou/uL (0.0-0.2); #Eosinphils 0.1 thou/uL (0.0-0.7); #Lymphocytes 2.8 thou/uL (1.20-3.40); #Monocytes 0.5 thou/uL (0.11-0.59); #Neutrophils 4.6 thou/uL (1.40-6.50); %Basophils 1.7 % (0.0-1.0); %Eosinophils 1.8 % (0.0-10.0); %Lymphocytes 34.4 % (21.0-51.0); %Monocytes 5.5 % (0.0-10.0); %Neutrophils 56.5 % (42.0-75.0); Hemoglobin 10.7 g/dL (12.0-16.0); Mean Corpuscular Hemoglobin 23.6 pg (27.0-31.0); Mean Corpuscular Volume 73.7 fL (78.0-98.0); Platelet Count 241 thou/uL (130-400); RBC Distribution Width 15.2 % (11.5-14.5); Red Blood Cell (RBC) Count 4.52 mill/uL (4.20-5.40); White Blood Cell (WBC) Count 8.1 thou/uL (4.8-10.8)
[2019-05-05 16:35] LABS: Anisocytosis SLIGHT = 6-15 cells (100X) (0-5/hpf); Hypochromia SLIGHT = 6-15 cells (100X) (0-5/hpf); MDiff Complete? YES; Microcytosis SLIGHT = 6-15 cells (100X) (0-5/hpf); Platelet Morphology Comment Appears Adequate; Polychromasia SLIGHT = 2-3 cells (100X) (0-2/hpf)
[2019-05-05 16:36] LABS: ALT (SGPT) 40 U/L (8-55); AST (SGOT) 59 U/L (5-34); Alkaline Phosphatase 177 U/L (40-110); Anion Gap 14 mmol/L (10-20); BUN (Urea Nitrogen) 8 mg/dL (9.8-20.1); Bilirubin, Total 0.4 mg/dL (0.2-1.2); Calc. Creatinine Clearance 0 mL/min (70-130); Calcium 9.3 mg/dL (7.8-10.44); Carbon Dioxide 26 mmol/L (22-29); Chloride 100 mmol/L (98-107); Estimated GFR-MDRD 52; Globulin 4.1 g/dL (2.4-3.5); Glucose 472 mg/dL (70-105); Lipase 29 U/L (8-78); Potassium 4.9 mmol/L (3.5-5.1); Protein, Total 8.1 g/dL (6.0-8.3); Sodium 135 mmol/L (136-145)
--- NOTE | 2019-05-05 16:49 | RAD ---
XR Chest Pa Lat STANDARD HISTORY: Chest pain COMPARISON: Earlier exam of same date. FINDINGS: The heart size is normal. The lungs are well expanded without focal areas of consolidation, pneumothorax or pleural effusions. IMPRESSION: No radiographic evidence of acute cardiopulmonary process.
[2019-05-05] MEDS ORDERED: Nitroglycerin 2% Ointment 1 INCH/1 GM Packet ONE (17:09)
[2019-05-05] MEDS ORDERED: Nitroglycerin 0.4 MG TAB (25 Tab Bottle) PO PRN (17:21)
[2019-05-05] MEDS ORDERED: Dextrose 5% in Water 1,000 ML IV PRN (17:30)
[2019-05-05] MEDS ORDERED: Dextrose 50% Abboject 50 ML SYRINGE SLOW IVP PRN (17:30)
--- NOTE | 2019-05-05 17:46 | HP ---
PRIMARY CARE PROVIDER: Dr. Charan Varela. CHIEF COMPLAINT: Chest pain. HISTORY OF PRESENT ILLNESS: Ms. Dubois is a pleasant 59-year-old lady, who was seen at [facility] on 05/05/2019. She was last hospitalized at this facility in September 2018 for right lower lobe pneumonia. She reports doing well until last week when she had left upper extremity pain. She had a recurrence of the pain 2 days ago. She describes it as dull, 6/10 currently. No known aggravating or relieving factors, not accompanied by nausea, sweating, lightheadedness or shortness of breath. She cannot recall any aggravating or relieving factors. Today morning, she started having left-sided chest pain. She describes that the pain may have radiated from the arm to the left side of her chest. She presented to the emergency room because of concern over chest pain. REVIEW OF SYSTEMS: All systems were reviewed and found to be negative except for the pertinent positives mentioned above. PAST MEDICAL HISTORY: Hypothyroidism, dyslipidemia, and diabetes mellitus type 2. PAST SURGICAL HISTORY: Cholecystectomy, section x3, and hysterectomy. PSYCHIATRIC HISTORY: Anxiety and depression. SOCIAL HISTORY: The patient smokes half a pack of cigarettes a day. She drinks alcohol on a social basis. She denies any recreational drug use. FAMILY HISTORY: She denies any family history of premature coronary artery disease. ALLERGIES: CODEINE. CURRENT MEDICATIONS: 1. Pravastatin 40 mg at bedtime. 2. Levothyroxine 75 mcg daily. 3. Albuterol inhalation p.r.n. 4. Metformin 1000 mg 2 times a day. 5. Glyburide 5 mg 2 times a day. 6. Losartan 25 mg daily. 7. Aspirin 81 mg daily. 8. Zoloft 50 mg daily. PHYSICAL EXAMINATION: GENERAL: Ms. Dubois is awake and alert, not in acute distress. VITAL SIGNS: Blood pressure is 142/72, pulse 77, respiratory rate 15, and oxygen saturation 97% on room air. She is afebrile. EYES: No scleral icterus, no conjunctival pallor. ENT: Moist mucosal membranes. No oropharyngeal erythema or exudates. NECK: Supple, nontender, trachea is midline. RESPIRATORY: Accessory muscles of breathing are not active. Chest wall movements are symmetric bilaterally. Lungs are clear to auscultation without wheeze, rhonchi, or crepitations. CARDIOVASCULAR: S1 and S2 are heard, regular. Peripheral pulses palpable. ABDOMEN: Soft, nontender, bowel sounds are heard. NEUROLOGIC: Cranial nerves 2 through 12 are intact. MUSCULOSKELETAL: Power is 5/5 in all 4 extremities. SKIN: No rashes or subcutaneous nodules. She has multiple tattoos. LYMPHATIC: No cervical lymphadenopathy. PSYCHIATRIC: Normal mood, normal affect. The patient is oriented to person, place, and time. LABORATORY DATA: Ms. Dubois's labs and investigations were reviewed. I reviewed her electrocardiogram, which shows normal sinus rhythm, no ST changes to suggest an acute coronary syndrome. I have also reviewed her chest x-ray, which does not show any pulmonary infiltrates. She has microcytic anemia with hemoglobin 10.7, normal white count, normal platelet count, decreased sodium of 135, normal potassium, creatinine 1.09, AST elevated at 59, normal ALT, alkaline phosphatase is elevated at 177 and normal lipase. Troponin I is less than 0.010. Total bilirubin is normal. ASSESSMENT AND PLAN: Ms. Dubois is a pleasant 59-year-old lady, who was seen at [facility] on 05/05/2019. Her problem list includes: 1. Chest pain: Ms. Dubois is presenting with a left-sided chest pain, nonpleuritic. Given her multiple risk factors for heart disease, she will be admitted to the hospital for telemetry monitoring and for stress test. She will receive nitrates as needed. Further management depending on the outcome of the stress test. 2. Diabetes mellitus type 2: Start Accu-Cheks and insulin sliding scale. 3. Dyslipidemia: Continue statin. 4. Hyponatremia: Mild, likely asymptomatic. 5. Hypothyroidism: Continue Synthroid. 6. Abnormal LFTs: To be followed up as outpatient. 7. Hypertension: Continue home medications, monitor vital signs and titrate antihypertensives as needed. Many thanks for allowing me to participate in your patient's care. Please feel free to contact me with any questions or concerns. LEVEL OF RISK: High. LEVEL OF COMPLEXITY: High. Job ID: [id number]
[2019-05-05] MEDS ORDERED: Nicotine 14 MG PATCH TD SCH (18:00)
[2019-05-05 19:42] LABS: Troponin I 0.169 ng/mL (< 0.028)
[2019-05-05 20:44] VITALS: BMI 41.2
[2019-05-05] MEDS ORDERED: Atorvastatin Calcium 10 MG TAB PO SCH (21:00)
[2019-05-05] MEDS ORDERED: HumaLOG 300 UNITS/3 ML VIAL SC PRN (21:12)
[2019-05-05 22:23] LABS: Troponin I 0.303 ng/mL (< 0.028)
[2019-05-05] MEDS ORDERED: Enoxaparin Sodium 120 MG/0.8 ML SYRINGE SC SCH (23:00)
[2019-05-06 02:05] LABS: CKMB 2.8 ng/mL (0-6.6)
[2019-05-06 04:56] LABS: #Basophils 0.1 thou/uL (0.0-0.2); #Eosinphils 0.2 thou/uL (0.0-0.7); #Lymphocytes 3.4 thou/uL (1.20-3.40); #Monocytes 0.4 thou/uL (0.11-0.59); #Neutrophils 4.6 thou/uL (1.40-6.50); %Eosinophils 2.1 % (0.0-10.0); %Neutrophils 52.9 % (42.0-75.0); Hemoglobin 10.1 g/dL (12.0-16.0); Mean Corpuscular HGB CONC 31.3 g/dL (32.0-36.0); Mean Corpuscular Hemoglobin 23.2 pg (27.0-31.0); Mean Corpuscular Volume 74.1 fL (78.0-98.0); Mean Platelet Volume 9.4 fL (7.4-10.4); Platelet Count 230 thou/uL (130-400); RBC Distribution Width 15.1 % (11.5-14.5); Red Blood Cell (RBC) Count 4.33 mill/uL (4.20-5.40); White Blood Cell (WBC) Count 8.7 thou/uL (4.8-10.8)
[2019-05-06 05:18] LABS: ALT (SGPT) 33 U/L (8-55); AST (SGOT) 44 U/L (5-34); Albumin 3.4 g/dL (3.5-5.0); Alkaline Phosphatase 149 U/L (40-110); Anion Gap 11 mmol/L (10-20); BUN (Urea Nitrogen) 10 mg/dL (9.8-20.1); Bilirubin, Total 0.5 mg/dL (0.2-1.2); Calc. Creatinine Clearance 138 mL/min (70-130); Calcium 8.9 mg/dL (7.8-10.44); Carbon Dioxide 25 mmol/L (22-29); Chloride 104 mmol/L (98-107); Estimated GFR-MDRD 80; Globulin 3.9 g/dL (2.4-3.5); Glucose 262 mg/dL (70-105); Potassium 4.1 mmol/L (3.5-5.1); Protein, Total 7.3 g/dL (6.0-8.3); Sodium 136 mmol/L (136-145)
[2019-05-06] MEDS ORDERED: Levothyroxine Sodium 75 MCG TAB PO SCH (06:00)
[2019-05-06] MEDS ORDERED: metFORMIN 500 MG TAB PO SCH (08:00)
[2019-05-06] MEDS ORDERED: Losartan 25 MG TAB PO SCH (09:00)
[2019-05-06] MEDS ORDERED: Aspirin 325 mg Enteric Coated Tablet PO SCH (09:00)
[2019-05-06] MEDS ORDERED: Enoxaparin Sodium 120 MG/0.8 ML SYRINGE SC SCH (09:00)
[2019-05-06] MEDS ORDERED: Aspirin 81 mg Enteric Coated Tablet PO SCH (09:00)
[2019-05-06] MEDS ORDERED: Enoxaparin Sodium 40 MG/0.4 ML SYRINGE SC SCH (09:00)
[2019-05-06 09:05] LABS: Hemoglobin 10.1 g/dL (12.0-16.0); Platelet Count 234 thou/uL (130-400)
[2019-05-06] MEDS ORDERED: Sodium Chloride 0.9% 1,000 ML IV SCH ×2 (11:30→15:27)
[2019-05-06] MEDS ORDERED: Communication Order-Pharmacy FS SCH (11:30)
[2019-05-06] MEDS ORDERED: Lidocaine 1% (PF) 30 ML VIAL ONE (12:45)
[2019-05-06] MEDS ORDERED: Heparin 10,000 UNITS/1 ML VIAL ONE (12:45)
[2019-05-06] MEDS ORDERED: Heparin (Artline) 1,000 ML ONE (12:45)
--- NOTE | 2019-05-06 12:46 | PDOC.HOSPP ---
- Subjective Encounter Date: 05/06/19 Encounter Time: 07:00 Subjective: Pt seen for followup re: NSTEMI. Upset, tearful, denies chest pain. - Objective Vital Signs & Weight: Vital Signs (12 hours) Temp Pulse Resp BP BP Pulse Ox 05/06/19 11:37 97.7 F 70 16 114/55 L 94 L 05/06/19 07:31 97.2 F L 67 16 128/58 L 93 L 05/06/19 03:43 97.7 F 62 18 116/53 L 95 Weight Weight 232 lb 12.8 oz I&O: 05/05/19 05/06/19 05/07/19 06:59 06:59 06:59 Intake Total 440 Output Total 600 Balance -160 Result Diagrams: 05/06/19 08:53 05/06/19 08:53 Additional Labs: Accuchecks 05/06/19 05/05/19 11:42 20:56 POC Glucose 290 H 354 H Labs and MARs reviewed by me EKG Reviewed by me: Yes (Tele: NSR) Hospitalist ROS - Review of Systems Constitutional: denies: fever, chills, sweats, weakness, malaise Cardiovascular: denies: chest pain, palpitations, orthopnea, paroxysmal noc. dyspnea, edema, light headedness Gastrointestinal: denies: nausea, vomiting, abdominal pain, diarrhea, constipation, melena, hematochezia Genitourinary: denies: dysuria, frequency, incontinence, hematuria, retention Musculoskeletal: denies: neck pain, shoulder pain, arm pain, back pain, hand pain, leg pain, foot pain - Medication Medications: Active Medications Generic Name Dose Route Start Last Admin Trade Name Freq PRN Reason Stop Dose Admin Aspirin 81 mg 05/06/19 09:00 05/06/19 09:04 Ecotrin PO 81 mg DAILY GERARDO Administration Atorvastatin Calcium 10 mg 05/05/19 21:00 05/05/19 21:27 Lipitor PO 10 mg HS GERARDO Administration Sodium Chloride 1,000 mls @ 100 mls/hr 05/06/19 11:30 05/06/19 11:53 Normal Saline 0.9% IV 1,000 mls .Q10H GERARDO Administration Insulin Human Lispro 0 units 05/05/19 21:12 05/05/19 21:28 Humalog SC 5 unit .BEDTIME SLIDING SC PRN Administration Bedtime Correctional Scale Levothyroxine Sodium 75 mcg 05/06/19 06:00 05/06/19 05:28 Synthroid PO 75 mcg 0600 GERARDO Administration Losartan Potassium 25 mg 05/06/19 09:00 05/06/19 09:05 Cozaar PO 25 mg DAILY GERARDO Administration Sertraline HCl 50 mg 05/06/19 09:00 05/06/19 09:04 Zoloft PO 50 mg DAILY GERARDO Administration - Exam General - other findings: Morbid obesity Eye: anicteric sclera ENT: moist mucosa Neck: supple, symmetric, no JVD, no thyromegaly Heart: RRR, no gallops, no rubs, normal peripheral pulses Respiratory: CTAB, no wheezes, no rales, no ronchi Gastrointestinal: soft, non-tender, non-distended, normal bowel sounds Musculoskeletal: normal strength, no muscle wasting Psychiatric: normal behavior, A&O x 3 Psychiatric - other findings: Tearful Hosp A/P (1) NSTEMI (non-ST elevated myocardial infarction) Code(s): I21.4 - NON-ST ELEVATION (NSTEMI) MYOCARDIAL INFARCTION Status: Acute (2) Hypothyroidism Code(s): E03.9 - HYPOTHYROIDISM, UNSPECIFIED Status: Chronic (3) Dyslipidemia Code(s): E78.5 - HYPERLIPIDEMIA, UNSPECIFIED Status: Chronic (4) DM2 (diabetes mellitus, type 2) Status: Chronic (5) Iron deficiency anemia Code(s): D50.9 - IRON DEFICIENCY ANEMIA, UNSPECIFIED Status: Chronic - Plan For cath. Continue synthroid. Continue Pravastatin. HTN controlled. IV iron followed by oral iron. Start Lantus insulin.
[2019-05-06 12:52] LABS: Cardiac Risk 5.5 (Less than 4.5)
[2019-05-06] MEDS ORDERED: Midazolam HCl 2 mg/2 ml Vial ONE (13:26)
[2019-05-06] MEDS ORDERED: Fentanyl 100 MCG/2 ML VIAL ONE (13:26)
--- NOTE | 2019-05-06 13:48 | CON ---
DATE OF CONSULTATION: HISTORY: Amparo Dubois is a 59-year-old white female, who was hospitalized at [facility] in September 2018 with right lower lobe pneumonia. She currently is followed by Dr. Vraela. Over the last week, she has noted some discomfort in her left arm that would last 2 to 3 hours at a time. Yesterday, she had dull chest pressure that started. She denied any nausea, vomiting, diaphoresis, or shortness of breath. This seemed to also be occurring with her left arm discomfort. She came to the emergency room and was given aspirin 324 mg and topical nitrate 1 inch was applied. Her discomfort then gradually resolved. She states total duration of the discomfort was 2-1/2 to 3 hours. She has had positive cardiac enzymes and Cardiology consultation is requested. She denies any recurrence of the discomfort since admission. PAST MEDICAL HISTORY: Hypertension, diabetes, hypercholesterolemia, and hypothyroidism. PAST SURGICAL HISTORY: x3, hysterectomy, and cholecystectomy. MEDICATIONS: 1. Atorvastatin 40 daily. 2. Wellbutrin 150 daily. 3. Glyburide 5 mg b.i.d. 4. Metformin 1000 mg b.i.d. 5. Synthroid 75 mcg daily. 6. Losartan 50 daily. 7. Sertraline 50 daily. ALLERGIES: TO CODEINE. SOCIAL HISTORY: She smokes one-third pack per day. She occasionally drinks alcohol. FAMILY HISTORY: Negative for coronary artery disease in the immediate family. REVIEW OF SYSTEMS: Twelve-point review of systems is otherwise unremarkable. PHYSICAL EXAMINATION: VITAL SIGNS: Blood pressure 128/58, pulse of 67. HEENT: PERRL. NECK: Supple. CHEST: Clear. CARDIAC: S1 and S2 normal without any S3, S4, or murmurs. Carotid upstroke is normal without bruits. ABDOMEN: Obese with normal bowel sounds. No tenderness or organomegaly. EXTREMITIES: Revealed no clubbing, cyanosis, or edema. Dorsalis pedis and posterior tibial pulses are intact. NEUROLOGIC: Grossly intact. SKIN: Warm and dry. LABORATORY DATA: EKG revealed normal sinus rhythm. EKG has not been repeated. Hemoglobin 10.1, hematocrit 32.1, white count 8700, and platelets 230,000, there are low RBC indices. Sodium 136, potassium 4.1, chloride 104, carbon dioxide 25, BUN 10, creatinine 0.75, and glucose 262. Troponin I is up to 0.406. IMPRESSION: 1. Non-ST elevation myocardial infarction, type 1. 2. Hypertension. 3. Hypercholesterolemia. 4. Diabetes. 5. Smoker. 6. Hypothyroidism. 7. Obesity. 8. Anemia with low RBC indices, probably iron deficiency anemia. PLAN: Situation was discussed with the patient and her . It was recommended that she undergo cardiac catheterization. Risks were discussed including , myocardial infarction, dye reaction, vascular injury, CVA, transfusion, limb loss, renal loss, etc. Risks of intervention with PTCA and stent placement were discussed including , myocardial infarction, emergent CABG, restenosis, stent thrombosis, vessel perforation, etc. Iron and iron-binding capacity will be performed with her low RBC indices. Fasting lipid profile and TSH will be obtained. Another EKG will be performed. With the potential for iron deficiency anemia from the above laboratory, I would recommend a bare-metal stent be placed in case she does have some type of GI pathology ongoing. The patient understands and agrees to proceed. Job ID: [id number] [facility]
[2019-05-06] MEDS ORDERED: Iron, Sodium Ferric Gluconate 250 MG in Sodium Chloride 0.9% 100 ML IVPB SCH (14:00)
[2019-05-06] MEDS ORDERED: Bivalirudin 250 MG VIAL ONE (14:03)
[2019-05-06] MEDS ORDERED: Nitroglycerin 100MG/250ML BOT 250 ML ONE (14:03)
[2019-05-06] MEDS ORDERED: Clopidogrel Bisulfate 300 MG TAB ONE (14:26)
[2019-05-06] MEDS ORDERED: Ondansetron PF 4 MG/2 ML Vial ONE (14:46)
[2019-05-06] MEDS ORDERED: Iopamidol 370 76% 50 ML VIAL FS ONE (15:18)
[2019-05-06] MEDS ORDERED: Iopamidol 370 76% 100 ML VIAL ONE (15:18)
[2019-05-06] MEDS ORDERED: Morphine 2 MG/ML SYRINGE SLOW IVP PRN (15:26)
[2019-05-06] MEDS ORDERED: Morphine 2 MG/ML SYRINGE ONE (17:58)
[2019-05-06] MEDS: Ferrous Sulfate 325 MG TAB PO SCH (20:02)
[2019-05-06] MEDS: Metoprolol Tartrate 25 MG TAB PO SCH (20:02)
[2019-05-06] MEDS ORDERED: Insulin Glargine 10 UNITS in Pre-Filled Syringe 1 EACH SC SCH (21:00)
[2019-05-06] MEDS ORDERED: Atorvastatin Calcium 40 MG TAB PO SCH (21:00)
[2019-05-06] MEDS: Acetaminophen 325 MG TAB PO PRN (21:42)
[2019-05-07 05:47] LABS: #Eosinphils 0.1 thou/uL (0.0-0.7); #Lymphocytes 1.8 thou/uL (1.20-3.40); #Monocytes 0.4 thou/uL (0.11-0.59); #Neutrophils 5.9 thou/uL (1.40-6.50); %Basophils 0.3 % (0.0-1.0); %Eosinophils 1.3 % (0.0-10.0); %Lymphocytes 21.4 % (21.0-51.0); %Monocytes 5.4 % (0.0-10.0); %Neutrophils 71.5 % (42.0-75.0); Hemoglobin 9.9 g/dL (12.0-16.0); Mean Corpuscular HGB CONC 30.9 g/dL (32.0-36.0); Mean Corpuscular Hemoglobin 23.6 pg (27.0-31.0); Mean Corpuscular Volume 76.4 fL (78.0-98.0); Mean Platelet Volume 9.5 fL (7.4-10.4); Platelet Count 244 thou/uL (130-400); RBC Distribution Width 15.4 % (11.5-14.5); Red Blood Cell (RBC) Count 4.19 mill/uL (4.20-5.40); White Blood Cell (WBC) Count 8.2 thou/uL (4.8-10.8)
[2019-05-07 05:48] LABS: ALT (SGPT) 29 U/L (8-55); AST (SGOT) 41 U/L (5-34); Albumin 3.2 g/dL (3.5-5.0); Alkaline Phosphatase 147 U/L (40-110); Anion Gap 9 mmol/L (10-20); BUN (Urea Nitrogen) 10 mg/dL (9.8-20.1); Bilirubin, Total 0.7 mg/dL (0.2-1.2); Calc. Creatinine Clearance 128 mL/min (70-130); Calcium 8.4 mg/dL (7.8-10.44); Carbon Dioxide 26 mmol/L (22-29); Chloride 103 mmol/L (98-107); Estimated GFR-MDRD 73; Globulin 3.7 g/dL (2.4-3.5); Glucose 394 mg/dL (70-105); Potassium 4.4 mmol/L (3.5-5.1); Protein, Total 6.9 g/dL (6.0-8.3); Sodium 134 mmol/L (136-145)
[2019-05-07] MEDS ORDERED: Levothyroxine Sodium 100 MCG TAB PO SCH (06:00)
[2019-05-07] MEDS: Acetaminophen 325 MG TAB PO PRN (06:33)
[2019-05-07] MEDS: HumaLOG 300 UNITS/3 ML VIAL SC PRN ×2 (06:34→11:23)
[2019-05-07 07:18] VITALS: BP 104/55; TEMP 98.1
[2019-05-07] MEDS ORDERED: Ferrous Sulfate 325 MG TAB PO SCH (08:00)
[2019-05-07] MEDS: Ferrous Sulfate 325 MG TAB PO SCH (08:32)
[2019-05-07] MEDS: Metoprolol Tartrate 25 MG TAB PO SCH (08:33)
[2019-05-07] MEDS ORDERED: Clopidogrel Bisulfate 75 MG TAB PO SCH (09:00)
[2019-05-07] MEDS ORDERED: Aspirin Chewable 81 MG TAB PO SCH (09:00)
[2019-05-07 09:27] LABS: Free T4 (Free Thyroxine) 0.64 ng/dL (0.70-1.48)
--- NOTE | 2019-05-07 11:40 | DIS ---
DATE OF ADMISSION: 05/05/2019 DATE OF DISCHARGE: 05/07/2019 PRIMARY CARE PROVIDER: Charan Varela MD DISCHARGE DIAGNOSES: 1. [id number] myocardial infarction. 2. Diabetes mellitus, type 2. 3. Hyponatremia. 4. Hypothyroidism. 5. Iron deficiency anemia. CONDITION OF THE PATIENT ON THE DAY OF DISCHARGE: Stable. I assessed Ms. Dubois on the day of discharge. She denies any chest pain or shortness of breath. Vital signs are stable. S1 and S2 are heard, regular. Lungs are clear to auscultation bilaterally. CONSULTATIONS DURING THIS HOSPITALIZATION: Cardiology, Dr. Lynn. POST-ACUTE CARE FOLLOWUP: With Cardiology, Dr. Lynn in 2 weeks; with primary care provider on May 09, 2019, at 09:50 a.m.; and with cardiac rehab. DISCHARGE MEDICATIONS: 1. Synthroid dose has been increased to 175 mcg daily. 2. She has been started on Lopressor 25 mg 2 times a day. 3. Ferrous sulfate 325 mg 3 times a day. 4. Glyburide dose has been increased to 10 mg 2 times a day. 5. She has been started on Plavix 75 mg daily. 6. Lipitor dose increased to 80 mg at bedtime. 7. She has been started on aspirin 81 mg daily. The remainder of her home medications were continued and include: 1. Bupropion 150 mg daily. 2. Cozaar 50 mg daily. 3. Sertraline 50 mg daily. DIET: Diabetic and heart healthy. ACTIVITY: As tolerated. HOSPITAL COURSE: Ms. Dubois is a pleasant 59-year-old lady, who was admitted to [facility] on May 05, 2019, for [id number] myocardial infarction. She was seen by Cardiology Service. She underwent cardiac catheterization on May 06, 2019. She was found to have LAD coronary artery disease and had bare-metal stent of [id number] LAD and bare-metal stent of the ostial first diagonal coronary artery. She was also found to have iron deficiency anemia. She received intravenous iron followed by oral iron. Her blood sugars were elevated during this hospitalization, and her glyburide dose was increased. She may eventually need insulin therapy. TSH was elevated at 13.02, and free T4 was low at 0.64. Therefore, her thyroxine dose was increased. Many thanks for allowing me to participate in your patient's care. Please feel free to contact me with any questions or concerns. DISCHARGE DESTINATION: Home. TIME SPENT: Total amount of time spent coordinating this discharge: 32 minutes. Job ID: [id number]
== END 2019-05-07 12:34 | disposition home or self-care (01) | DRG 249 ==
LOC: ERS 15:17 → OBSVTOIN 18:39 → ERHOLD 18:39 → 2SW 20:38 → 2SE 05-06 17:39
PROVIDERS: ADMIT Internal Medicine; ATTEND Internal Medicine
PROC: 02713EZ Dilation of Coronary Artery, Two Arteries with Two Intraluminal Devices, Percutaneous Approach (ICD-10-PCS; principal; 2019-05-06)
PROC: 4A023N7 Measurement of Cardiac Sampling and Pressure, Left Heart, Percutaneous Approach (ICD-10-PCS; 2019-05-06)
PROC: B2111ZZ Fluoroscopy of Multiple Coronary Arteries using Low Osmolar Contrast (ICD-10-PCS; 2019-05-06)
PROC: B2151ZZ Fluoroscopy of Left Heart using Low Osmolar Contrast (ICD-10-PCS; 2019-05-06)
DX: I21.4 Non-ST elevation (NSTEMI) myocardial infarction (principal); E87.1 Hypo-osmolality and hyponatremia; Z68.41 Body mass index [BMI] 40.0-44.9, adult; E11.9 Type 2 diabetes mellitus without complications; E03.9 Hypothyroidism, unspecified; D50.9 Iron deficiency anemia, unspecified; I25.10 Atherosclerotic heart disease of native coronary artery without angina pectoris; F41.9 Anxiety disorder, unspecified; F32.9 Major depressive disorder, single episode, unspecified; F17.210 Nicotine dependence, cigarettes, uncomplicated; I10 Essential (primary) hypertension; E78.00 Pure hypercholesterolemia, unspecified; E66.01 Morbid (severe) obesity due to excess calories; Z88.8 Allergy status to other drugs, medicaments and biological substances; Z79.890 Hormone replacement therapy; Z79.84 Long term (current) use of oral hypoglycemic drugs; Z90.49 Acquired absence of other specified parts of digestive tract; Z90.710 Acquired absence of both cervix and uterus; Z79.899 Other long term (current) drug therapy
CPT/HCPCS: 36415; 36416; 71045; 71046; 76942; 80053; 80061; 82553; 83540; 83550; 83690; 84439; 84443; 84481; 84484; 85025; 85347; 92928; 93005; 93010; 93458; 93798; 94760; 99152; 99153; C1725; C1769; C1876; C1887; J0583; J1644; J1650; J1815; J2001; J2250; J2270; J2405; J2916; J3010; J3490; Q9967

== ENCOUNTER 2019-08-18 05:07 | Emergency (ER) | payer BC, OTHER, SELFPAY | END 2019-08-18 05:38 | disposition home or self-care (01) | LOC: ERS 05:07 | DX: R11.2 Nausea with vomiting, unspecified (principal); R19.7 Diarrhea, unspecified; E11.9 Type 2 diabetes mellitus without complications; E78.5 Hyperlipidemia, unspecified; E03.9 Hypothyroidism, unspecified; F41.9 Anxiety disorder, unspecified; F32.9 Major depressive disorder, single episode, unspecified; F17.210 Nicotine dependence, cigarettes, uncomplicated; Z79.84 Long term (current) use of oral hypoglycemic drugs; Z79.82 Long term (current) use of aspirin; Z79.899 Other long term (current) drug therapy | CPT/HCPCS: 99283 ==

== ENCOUNTER 2019-12-16 16:03 | Emergency (ER) | payer BC, OTHER | END 2019-12-16 17:19 | disposition home or self-care (01) | LOC: ERS 16:03 | DX: H65.93 Unspecified nonsuppurative otitis media, bilateral (principal); E03.9 Hypothyroidism, unspecified; E78.5 Hyperlipidemia, unspecified; E11.9 Type 2 diabetes mellitus without complications; I25.2 Old myocardial infarction; Z87.891 Personal history of nicotine dependence; Z79.82 Long term (current) use of aspirin; Z79.84 Long term (current) use of oral hypoglycemic drugs; Z79.899 Other long term (current) drug therapy | CPT/HCPCS: 99282 ==

== ENCOUNTER 2020-08-26 08:30 | Emergency (ER) | payer OTHER ==
[2020-08-26] MEDS ORDERED: Ondansetron PF 4 MG/2 ML Vial ONE (09:04)
[2020-08-26 09:31] LABS: #Basophils 0.1 thou/uL (0.0-0.2); #Eosinphils 0.2 thou/uL (0.0-0.7); #Lymphocytes 2.3 thou/uL (1.20-3.40); #Monocytes 0.6 thou/uL (0.11-0.59); #Neutrophils 5.4 thou/uL (1.40-6.50); %Basophils 0.8 % (0.0-1.0); %Eosinophils 2.1 % (0.0-10.0); %Lymphocytes 26.8 % (21.0-51.0); %Neutrophils 63.5 % (42.0-75.0); Hemoglobin 10.3 g/dL (12.0-16.0); Mean Corpuscular HGB CONC 32.1 g/dL (32.0-36.0); Mean Corpuscular Hemoglobin 26.1 pg (27.0-31.0); Mean Corpuscular Volume 81.3 fL (78.0-98.0); Mean Platelet Volume 8.3 fL (7.4-10.4); Platelet Count 243 thou/uL (130-400); RBC Distribution Width 14.5 % (11.5-14.5); Red Blood Cell (RBC) Count 3.96 mill/uL (4.20-5.40); White Blood Cell (WBC) Count 8.6 thou/uL (4.8-10.8)
[2020-08-26 09:54] LABS: ALT (SGPT) 32 U/L (8-55); AST (SGOT) 45 U/L (5-34); Albumin 3.5 g/dL (3.5-5.0); Alkaline Phosphatase 127 U/L (40-110); Anion Gap 12 mmol/L (10-20); BUN (Urea Nitrogen) 17 mg/dL (9.8-20.1); Bilirubin, Total 0.6 mg/dL (0.2-1.2); Calc. Creatinine Clearance 0 mL/min (70-130); Calcium 9.5 mg/dL (7.8-10.44); Carbon Dioxide 24 mmol/L (22-29); Chloride 107 mmol/L (98-107); Glucose 106 mg/dL (70-105); Lipase 33 U/L (8-78); Potassium 4.6 mmol/L (3.5-5.1); Protein, Total 7.5 g/dL (6.0-8.3); Sodium 138 mmol/L (136-145)
[2020-08-26 11:09] LABS: Bacteria/HPF None Seen HPF (None Seen); Bilirubin Negative (Negative); Blood, Urine 2+ (Negative); Clarity Clear (Clear); Glucose, Urine (Dipstick) Normal (Negative); Ketone, Urine Negative (Negative); Leukocyte Negative Leu/uL (Negative); Nitrite Negative (Negative); Protein, Urine (Dipstick) Negative (Neg-Trace); RBC/HPF 21-50 HPF (0-3); Specific Gravity, Urine 1.019 (1.002-1.036); Squamous Epithelial 0-3 HPF (0-3)
== END 2020-08-26 12:28 | disposition home or self-care (01) ==
LOC: ERS 08:30
DX: E86.0 Dehydration (principal); N39.0 Urinary tract infection, site not specified; R11.2 Nausea with vomiting, unspecified; I25.2 Old myocardial infarction; E11.9 Type 2 diabetes mellitus without complications; E03.9 Hypothyroidism, unspecified; E78.5 Hyperlipidemia, unspecified; E78.00 Pure hypercholesterolemia, unspecified; Z87.891 Personal history of nicotine dependence; Z79.84 Long term (current) use of oral hypoglycemic drugs; Z79.899 Other long term (current) drug therapy; Z79.82 Long term (current) use of aspirin
CPT/HCPCS: 80053; 81003; 81015; 83690; 85025; 96374; J2405

== ENCOUNTER 2021-11-15 14:43 | Emergency (ER) | payer BC, OTHER | END 2021-11-15 15:56 | disposition home or self-care (01) | LOC: ERS 14:43 | DX: H60.91 Unspecified otitis externa, right ear (principal) | CPT/HCPCS: 99282 ==

== ENCOUNTER 2022-02-18 10:49 | Emergency (ER) | payer BC ==
[2022-02-18] MEDS ORDERED: diphenhydrAMINE 50 MG/ML VIAL ONE (11:29)
[2022-02-18] MEDS ORDERED: Dicyclomine 20 MG/2 ML VIAL ONE (11:29)
[2022-02-18] MEDS ORDERED: Acetaminophen 500 MG TAB ONE (11:29)
[2022-02-18 11:50] LABS: Mean Corpuscular HGB CONC 31.9 g/dL (32.0-36.0); Mean Corpuscular Hemoglobin 30.9 pg (27.0-31.0); Mean Platelet Volume 9.5 fL (7.4-10.4); Platelet Count 169 10x3/uL (130-400); RBC Distribution Width 16.5 % (11.5-14.5); Red Blood Cell (RBC) Count 3.89 mill/uL (4.20-5.40); White Blood Cell (WBC) Count 7.6 10x3/uL (4.8-10.8)
[2022-02-18 11:59] LABS: ALT (SGPT) 26 U/L (8-55); AST (SGOT) 46 U/L (5-34); Albumin 3.2 g/dL (3.5-5.0); Alkaline Phosphatase 131 U/L (40-110); Anion Gap 9 mmol/L (10-20); BUN (Urea Nitrogen) 9 mg/dL (9.8-20.1); Bilirubin, Total 0.9 mg/dL (0.2-1.2); Calc. Creatinine Clearance 0 mL/min (70-130); Calcium 9.5 mg/dL (7.8-10.44); Carbon Dioxide 24 mmol/L (22-29); Chloride 106 mmol/L (98-107); Estimated GFR 95; Globulin 4.2 g/dL (2.4-3.5); Glucose 132 mg/dL (70-105); Lipase 21 U/L (8-78); Magnesium 1.3 mg/dL (1.6-2.6); Protein, Total 7.4 g/dL (6.0-8.3); Sodium 135 mmol/L (136-145)
[2022-02-18] MEDS ORDERED: Prochlorperazine 10 MG/2 ML VIAL IVP SCH (12:00)
[2022-02-18 12:07] LABS: #Eosinphils 0.1 thou/uL (0.0-0.7); #Lymphocytes 1.7 thou/uL (1.20-3.40); #Monocytes 0.8 thou/uL (0.11-0.59); #Neutrophils 5.1 thou/uL (1.40-6.50); %Basophils 0.2 % (0.0-1.0); %Lymphocytes 22.2 % (21.0-51.0); %Neutrophils 66.7 % (42.0-75.0)
[2022-02-18 12:34] LABS: SARS-CoV-2 NAA Rapid Test Not Detected (NotDetected)
[2022-02-18] MEDS ORDERED: Magnesium 2 GM/50 ML BAG (IN WATER) ONE (12:38)
== END 2022-02-18 13:08 | disposition home or self-care (01) ==
LOC: ERS 10:49
DX: K52.9 Noninfective gastroenteritis and colitis, unspecified (principal); I10 Essential (primary) hypertension; E11.9 Type 2 diabetes mellitus without complications; E78.5 Hyperlipidemia, unspecified; E03.9 Hypothyroidism, unspecified; Z20.822 Contact with and (suspected) exposure to COVID-19; Z79.899 Other long term (current) drug therapy; Z79.82 Long term (current) use of aspirin; Z79.84 Long term (current) use of oral hypoglycemic drugs
CPT/HCPCS: 80053; 83690; 83735; 85025; 94760; 96361; 96365; 96372; 96375; J0780; J1200; J3475

== ENCOUNTER 2022-03-29 10:09 | Emergency (ER) | payer BC ==
[2022-03-29] MEDS ORDERED: Ondansetron ODT 4 MG TAB ONE (11:03)
== END 2022-03-29 11:29 | disposition home or self-care (01) ==
LOC: ERS 10:09
DX: R11.0 Nausea (principal); E78.5 Hyperlipidemia, unspecified; I10 Essential (primary) hypertension; E11.9 Type 2 diabetes mellitus without complications; F17.210 Nicotine dependence, cigarettes, uncomplicated; Z79.82 Long term (current) use of aspirin; Z79.84 Long term (current) use of oral hypoglycemic drugs; Z79.899 Other long term (current) drug therapy
CPT/HCPCS: 99283; Q0162

== ENCOUNTER 2022-03-31 14:36 | Emergency (ER) | payer BC ==
[2022-03-31] MEDS ORDERED: Ondansetron PF 4 MG/2 ML Vial ONE (15:11)
[2022-03-31] MEDS ORDERED: Dicyclomine 20 MG/2 ML VIAL ONE (15:12)
[2022-03-31 15:17] LABS: #Basophils 0.1 thou/uL (0.0-0.2); #Eosinphils 0.1 thou/uL (0.0-0.7); #Lymphocytes 1.2 thou/uL (1.20-3.40); #Monocytes 0.4 thou/uL (0.11-0.59); #Neutrophils 3.4 thou/uL (1.40-6.50); %Basophils 1.1 % (0.0-1.0); %Lymphocytes 23.6 % (21.0-51.0); %Monocytes 7.7 % (0.0-10.0); %Neutrophils 65.6 % (42.0-75.0); Mean Corpuscular HGB CONC 33.1 g/dL (32.0-36.0); Mean Corpuscular Hemoglobin 31.4 pg (27.0-31.0); Mean Corpuscular Volume 94.9 fl (78.0-98.0); Mean Platelet Volume 8.1 fL (7.4-10.4); Platelet Count 182 10x3/uL (130-400); RBC Distribution Width 12.4 % (11.5-14.5); Red Blood Cell (RBC) Count 4.15 mill/uL (4.20-5.40); White Blood Cell (WBC) Count 5.1 10x3/uL (4.8-10.8)
[2022-03-31 15:42] LABS: ALT (SGPT) 30 U/L (8-55); AST (SGOT) 63 U/L (5-34); Alkaline Phosphatase 140 U/L (40-110); Anion Gap 9 mmol/L (10-20); BUN (Urea Nitrogen) 10 mg/dL (9.8-20.1); Bilirubin, Total 1.1 mg/dL (0.2-1.2); Calc. Creatinine Clearance 0 mL/min (70-130); Calcium 9.5 mg/dL (7.8-10.44); Carbon Dioxide 25 mmol/L (22-29); Chloride 105 mmol/L (98-107); Estimated GFR 96; Globulin 4.4 g/dL (2.4-3.5); Glucose 184 mg/dL (70-105); Lipase 35 U/L (8-78); Potassium 4.2 mmol/L (3.5-5.1); Protein, Total 7.4 g/dL (6.0-8.3); Sodium 135 mmol/L (136-145)
[2022-03-31 16:30] LABS: Bilirubin Negative (Negative); Blood, Urine Trace (Negative); Clarity Clear (Clear); Glucose, Urine (Dipstick) Normal (Negative); Ketone, Urine Negative (Negative); Leukocyte Negative Leu/uL (Negative); Nitrite Negative (Negative); Protein, Urine (Dipstick) Negative (Neg-Trace); Specific Gravity, Urine 1.008 (1.002-1.036); Urobilinogen 12 mg/dL (Less than 2)
[2022-03-31 16:42] LABS: Bacteria/HPF Rare-Few HPF (None Seen); RBC/HPF 0-3 HPF (0-3); Squamous Epithelial 0-3 HPF (0-3); WBC/HPF 0-3 HPF (0-3)
== END 2022-03-31 17:44 | disposition home or self-care (01) ==
LOC: ERS 14:36
DX: R11.2 Nausea with vomiting, unspecified (principal); E78.5 Hyperlipidemia, unspecified; I10 Essential (primary) hypertension; E11.9 Type 2 diabetes mellitus without complications; E03.9 Hypothyroidism, unspecified; F17.210 Nicotine dependence, cigarettes, uncomplicated
CPT/HCPCS: 36415; 36416; 80053; 81003; 81015; 83690; 84443; 85025; 93005; 96361; 96372; 96374; J2405

== ENCOUNTER 2023-01-05 08:38 | Emergency (ER) | payer BC ==
[2023-01-05 09:51] LABS: #Eosinphils 0.1 thou/uL (0.0-0.7); #Monocytes 0.4 thou/uL (0.11-0.59); %Basophils 0.5 % (0.0-1.0); %Eosinophils 2.4 % (0.0-10.0); %Lymphocytes 20.6 % (21.0-51.0); %Monocytes 6.3 % (0.0-10.0); Hematocrit 38.5 % (36.0-47.0); Hemoglobin 12.3 g/dL (12.0-16.0); Mean Corpuscular HGB CONC 31.9 g/dL (32.0-36.0); Mean Corpuscular Hemoglobin 29.4 pg (27.0-31.0); Mean Corpuscular Volume 92.1 fl (78.0-98.0); Platelet Count 154 10x3/uL (130-400); RBC Distribution Width 17.3 % (11.5-14.5); Red Blood Cell (RBC) Count 4.18 mill/uL (4.20-5.40); White Blood Cell (WBC) Count 5.7 10x3/uL (4.8-10.8)
[2023-01-05 10:08] LABS: Bacteria/HPF 2+ HPF (None Seen); Bilirubin Negative (Negative); Blood, Urine Negative (Negative); CAUTI Indications for Culture Fever or rigors; Clarity Turbid (Clear); Glucose, Urine (Dipstick) Greater than 1000 mg/dL (Negative); Ketone, Urine Negative (Negative); Leukocyte Negative Leu/uL (Negative); Nitrite 2+ (Negative); Protein, Urine (Dipstick) Negative (Neg-Trace); RBC/HPF 0-3 HPF (0-3); Specific Gravity, Urine 1.026 (1.002-1.036); Squamous Epithelial 0-3 HPF (0-3); WBC/HPF 0-3 HPF (0-3); pH, Urine 6.5 (5.0-9.0)
[2023-01-05 10:10] LABS: Urine Culture Reflex No No
[2023-01-05 10:14] LABS: ALT (SGPT) 32 U/L (8-55); AST (SGOT) 46 U/L (5-34); Albumin 3.5 g/dL (3.5-5.0); Alkaline Phosphatase 134 U/L (40-110); Anion Gap 10 mmol/L (10-20); BUN (Urea Nitrogen) 10 mg/dL (9.8-20.1); Bilirubin, Total 0.6 mg/dL (0.2-1.2); Calc. Creatinine Clearance 0 mL/min (70-130); Calcium 9.2 mg/dL (7.8-10.44); Carbon Dioxide 26 mmol/L (22-29); Chloride 103 mmol/L (98-107); Estimated GFR 74; Globulin 4.1 g/dL (2.4-3.5); Glucose 335 mg/dL (70-105); Lipase 44 U/L (8-78); Potassium 4.2 mmol/L (3.5-5.1); Protein, Total 7.6 g/dL (6.0-8.3); Sodium 135 mmol/L (136-145)
[2023-01-05 10:36] LABS: SARS-CoV-2 NAA Rapid Test Not Detected (NotDetected)
[2023-01-05 10:59] LABS: Magnesium 1.5 mg/dL (1.6-2.6)
== END 2023-01-05 12:01 | disposition home or self-care (01) ==
LOC: ERS 08:38
DX: N39.0 Urinary tract infection, site not specified (principal); B34.9 Viral infection, unspecified; E78.5 Hyperlipidemia, unspecified; I10 Essential (primary) hypertension; E11.9 Type 2 diabetes mellitus without complications; F17.210 Nicotine dependence, cigarettes, uncomplicated; Z20.822 Contact with and (suspected) exposure to COVID-19
CPT/HCPCS: 36415; 80053; 81001; 83605; 83690; 83735; 85025; 93005

== ENCOUNTER 2023-05-05 13:16 | Emergency (ER) | payer BC | END 2023-05-05 14:47 | disposition home or self-care (01) | LOC: ERS 13:16 | DX: S92.532D Displaced fracture of distal phalanx of left lesser toe(s), subsequent encounter for fracture with routine healing (principal); F17.210 Nicotine dependence, cigarettes, uncomplicated; I10 Essential (primary) hypertension; E11.9 Type 2 diabetes mellitus without complications; X58.XXXD Exposure to other specified factors, subsequent encounter ==

== ENCOUNTER 2023-06-22 11:01 | Emergency (ER) | payer BC ==
[2023-06-22] MEDS ORDERED: Ketorolac Tromethamine 30 MG (1 mL) VIAL ONE (11:31)
== END 2023-06-22 11:36 | disposition home or self-care (01) ==
LOC: ERS 11:01
DX: M16.11 Unilateral primary osteoarthritis, right hip (principal)
CPT/HCPCS: 96372; 99282; J1885

== ENCOUNTER 2023-08-01 10:11 | Emergency (ER) | payer BC ==
[2023-08-01] MEDS ORDERED: Ondansetron PF 4 MG/2 ML Vial ONE (11:11)
[2023-08-01 12:02] LABS: #Basophils 0.05 10x3/uL (0.0-0.2); %Basophils 0.6 % (0.0-1.0); %Eosinophils 2.9 % (0.0-10.0); %Lymphocytes 17.6 % (21.0-51.0); %Monocytes 4.6 % (0.0-10.0); %Neutrophils 73.9 % (42.0-75.0); Hematocrit 37.4 % (36.0-47.0); Hemoglobin 12.2 g/dL (12.0-16.0); Mean Corpuscular HGB CONC 32.6 g/dL (32.0-36.0); Mean Corpuscular Hemoglobin 28.3 pg (27.0-31.0); Mean Corpuscular Volume 86.8 fL (78.0-98.0); Mean Platelet Volume 9.6 fL (7.4-10.4); Platelet Count 205 10x3/uL (130-400); RBC Distribution Width 17.2 % (11.5-14.5); Red Blood Cell (RBC) Count 4.31 mill/uL (4.20-5.40)
[2023-08-01 12:21] LABS: Globulin 4.9 g/dL (2.4-3.5)
[2023-08-01 12:25] LABS: ALT (SGPT) 30 U/L (8-55); AST (SGOT) 52 U/L (5-34); Albumin 2.7 g/dL (3.4-4.8); Alkaline Phosphatase 161 U/L (40-110); Anion Gap 11 mmol/L (10-20); BUN (Urea Nitrogen) 9 mg/dL (9.8-20.1); Calc. Creatinine Clearance 0 mL/min (70-130); Carbon Dioxide 22 mmol/L (23-31); Chloride 105 mmol/L (98-107); Estimated GFR 88; Glucose 225 mg/dL (80-115); Potassium 4.1 mmol/L (3.5-5.1); Protein, Total 7.6 g/dL (5.8-8.1); Sodium 134 mmol/L (136-145)
[2023-08-01 12:36] LABS: Bilirubin Negative (Negative); Blood, Urine Negative (Negative); CAUTI Indications for Culture Pelvic or flank pain; Clarity Turbid (Clear); Glucose, Urine (Dipstick) 50 mg/dL (Negative); Ketone, Urine Negative (Negative); Leukocyte Negative Leu/uL (Negative); Nitrite 2+ (Negative); Protein, Urine (Dipstick) Negative (Neg-Trace); RBC/HPF 0-3 HPF (0-3); Squamous Epithelial 0-3 HPF (0-3); Urobilinogen 12 mg/dL (Less than 2); WBC/HPF 0-3 HPF (0-3); pH, Urine 6.5 (5.0-9.0)
[2023-08-01 12:37] LABS: Bacteria/HPF 1+ HPF (None Seen)
[2023-08-01 12:38] LABS: Urine Culture Reflex No No
[2023-08-01 15:27] LABS: Lipase 488 U/L (8-78)
[2023-08-01 15:41] LABS: Bilirubin, Total 0.8 mg/dL (0.2-1.2); Calcium 9.7 mg/dL (7.8-10.44)
== END 2023-08-01 13:15 | disposition home or self-care (01) ==
LOC: ERS 10:11
DX: N39.0 Urinary tract infection, site not specified (principal); R19.7 Diarrhea, unspecified; E11.9 Type 2 diabetes mellitus without complications; F17.210 Nicotine dependence, cigarettes, uncomplicated; Z79.84 Long term (current) use of oral hypoglycemic drugs
CPT/HCPCS: 80053; 81001; 83690; 85025; 96361; 96374; J2405

== ENCOUNTER 2023-08-15 08:40 | Emergency (ER) | payer BC ==
[2023-08-15] MEDS ORDERED: Ketorolac Tromethamine 30 MG (1 mL) VIAL ONE (11:34)
== END 2023-08-15 12:04 | disposition home or self-care (01) ==
LOC: ERS 08:40
DX: J02.9 Acute pharyngitis, unspecified (principal); I10 Essential (primary) hypertension; E11.9 Type 2 diabetes mellitus without complications; F17.210 Nicotine dependence, cigarettes, uncomplicated; E78.00 Pure hypercholesterolemia, unspecified; Z79.899 Other long term (current) drug therapy; Z79.84 Long term (current) use of oral hypoglycemic drugs
CPT/HCPCS: 87081; 87430; 96372; 99283; J1885

== ENCOUNTER 2023-08-24 10:11 | Emergency (ER) | payer BC ==
[2023-08-24 10:46] LABS: #Basophils 0.07 10x3/uL (0.0-0.2); %Eosinophils 7.8 % (0.0-10.0); %Lymphocytes 23.5 % (21.0-51.0); %Monocytes 7.8 % (0.0-10.0); %Neutrophils 59.6 % (42.0-75.0); Hematocrit 33.2 % (36.0-47.0); Hemoglobin 10.8 g/dL (12.0-16.0); Mean Corpuscular HGB CONC 32.5 g/dL (32.0-36.0); Mean Corpuscular Hemoglobin 28.1 pg (27.0-31.0); Mean Corpuscular Volume 86.5 fL (78.0-98.0); Mean Platelet Volume 10.2 fL (7.4-10.4); Platelet Count 182 10x3/uL (130-400); Red Blood Cell (RBC) Count 3.84 mill/uL (4.20-5.40)
[2023-08-24] MEDS ORDERED: Ketorolac Tromethamine 30 MG (1 mL) VIAL ONE (10:46)
[2023-08-24] MEDS ORDERED: Morphine 4 MG/ML VIAL ONE (10:46)
[2023-08-24 11:04] LABS: ALT (SGPT) 29 U/L (8-55); AST (SGOT) 56 U/L (5-34); Albumin 2.5 g/dL (3.4-4.8); Alkaline Phosphatase 145 U/L (40-110); Anion Gap 10 mmol/L (10-20); BUN (Urea Nitrogen) 10 mg/dL (9.8-20.1); Bilirubin, Total 0.7 mg/dL (0.2-1.2); Calc. Creatinine Clearance 0 mL/min (70-130); Calcium 9.3 mg/dL (7.8-10.44); Carbon Dioxide 22 mmol/L (23-31); Chloride 109 mmol/L (98-107); Estimated GFR 92; Globulin 4.1 g/dL (2.4-3.5); Glucose 280 mg/dL (80-115); Potassium 4.4 mmol/L (3.5-5.1); Protein, Total 6.6 g/dL (5.8-8.1); Sodium 137 mmol/L (136-145)
== END 2023-08-24 12:37 | disposition home or self-care (01) ==
LOC: ERS 10:11
DX: H92.01 Otalgia, right ear (principal); E11.9 Type 2 diabetes mellitus without complications; I10 Essential (primary) hypertension; I25.2 Old myocardial infarction; E78.00 Pure hypercholesterolemia, unspecified; F17.210 Nicotine dependence, cigarettes, uncomplicated; Z79.899 Other long term (current) drug therapy
CPT/HCPCS: 70450; 80053; 83605; 85025; 96374; 96375; J1885; J2270

== ENCOUNTER 2023-09-01 12:27 | Emergency (ER) | payer BC | END 2023-09-01 13:08 | disposition home or self-care (01) | LOC: ERS 12:27 | DX: L03.113 Cellulitis of right upper limb (principal); E11.9 Type 2 diabetes mellitus without complications; I10 Essential (primary) hypertension; E78.00 Pure hypercholesterolemia, unspecified; E03.9 Hypothyroidism, unspecified; Z79.899 Other long term (current) drug therapy; Z79.84 Long term (current) use of oral hypoglycemic drugs; F17.210 Nicotine dependence, cigarettes, uncomplicated; W54.0XXA Bitten by dog, initial encounter | CPT/HCPCS: 99282 ==

== ENCOUNTER 2023-09-08 11:49 | Emergency (ER) | payer BC ==
[2023-09-08] MEDS ORDERED: Ondansetron PF 4 MG/2 ML Vial ONE (13:05)
[2023-09-08] MEDS ORDERED: Promethazine HCl 12.5 MG in Sodium Chloride 0.9% 50 ML IVPB SCH (13:15)
[2023-09-08 13:59] LABS: ALT (SGPT) 29 U/L (8-55); AST (SGOT) 54 U/L (5-34); Albumin 2.8 g/dL (3.4-4.8); Alkaline Phosphatase 140 U/L (40-110); Anion Gap 12 mmol/L (10-20); BUN (Urea Nitrogen) 16 mg/dL (9.8-20.1); Bilirubin, Total 1.5 mg/dL (0.2-1.2); Calc. Creatinine Clearance 0 mL/min (70-130); Carbon Dioxide 22 mmol/L (23-31); Chloride 109 mmol/L (98-107); Estimated GFR 95; Globulin 4.4 g/dL (2.4-3.5); Glucose 92 mg/dL (80-115); Potassium 3.9 mmol/L (3.5-5.1); Protein, Total 7.2 g/dL (5.8-8.1); Sodium 139 mmol/L (136-145)
[2023-09-08 14:07] LABS: #Basophils 0.04 10x3/uL (0.0-0.2); %Basophils 0.6 % (0.0-1.0); %Eosinophils 4.3 % (0.0-10.0); %Lymphocytes 26.3 % (21.0-51.0); %Monocytes 6.1 % (0.0-10.0); %Neutrophils 62.4 % (42.0-75.0); Hematocrit 34.6 % (36.0-47.0); Hemoglobin 11.3 g/dL (12.0-16.0); Mean Corpuscular HGB CONC 32.7 g/dL (32.0-36.0); Mean Corpuscular Hemoglobin 28.5 pg (27.0-31.0); Mean Corpuscular Volume 87.4 fL (78.0-98.0); Mean Platelet Volume 10.4 fL (7.4-10.4); Platelet Count 182 10x3/uL (130-400); RBC Distribution Width 17.2 % (11.5-14.5); Red Blood Cell (RBC) Count 3.96 mill/uL (4.20-5.40)
== END 2023-09-08 16:04 | disposition home or self-care (01) ==
LOC: ERS 11:49
DX: R11.2 Nausea with vomiting, unspecified (principal); E11.9 Type 2 diabetes mellitus without complications; I10 Essential (primary) hypertension; I25.10 Atherosclerotic heart disease of native coronary artery without angina pectoris; I25.2 Old myocardial infarction; E03.9 Hypothyroidism, unspecified; E78.00 Pure hypercholesterolemia, unspecified; F17.210 Nicotine dependence, cigarettes, uncomplicated; Z79.899 Other long term (current) drug therapy
CPT/HCPCS: 36416; 80053; 82010; 85025; 96374; 96375; J2405; J2550

== ENCOUNTER 2023-09-16 05:18 | Emergency (ER) | payer BC ==
[2023-09-16] MEDS ORDERED: Ondansetron PF 4 MG/2 ML Vial ONE (05:56)
[2023-09-16 06:02] LABS: #Basophils 0.04 10x3/uL (0.0-0.2); %Basophils 0.6 % (0.0-1.0); %Eosinophils 3.6 % (0.0-10.0); %Lymphocytes 25.5 % (21.0-51.0); %Monocytes 7.2 % (0.0-10.0); %Neutrophils 62.7 % (42.0-75.0); Hemoglobin 12.5 g/dL (12.0-16.0); Mean Corpuscular HGB CONC 32.1 g/dL (32.0-36.0); Mean Corpuscular Hemoglobin 29.1 pg (27.0-31.0); Mean Corpuscular Volume 90.9 fL (78.0-98.0); Mean Platelet Volume 10.2 fL (7.4-10.4); Platelet Count 181 10x3/uL (130-400); Red Blood Cell (RBC) Count 4.29 mill/uL (4.20-5.40)
[2023-09-16 06:17] LABS: ALT (SGPT) 29 U/L (8-55); AST (SGOT) 56 U/L (5-34); Albumin 2.8 g/dL (3.4-4.8); Alkaline Phosphatase 148 U/L (40-110); Anion Gap 11 mmol/L (10-20); BUN (Urea Nitrogen) 13 mg/dL (9.8-20.1); Bilirubin, Total 0.9 mg/dL (0.2-1.2); Calc. Creatinine Clearance 0 mL/min (70-130); Calcium 9.1 mg/dL (7.8-10.44); Carbon Dioxide 21 mmol/L (23-31); Chloride 107 mmol/L (98-107); Estimated GFR 86; Globulin 4.6 g/dL (2.4-3.5); Glucose 119 mg/dL (80-115); Lipase 209 U/L (8-78); Magnesium 1.8 mg/dL (1.6-2.6); Potassium 4.5 mmol/L (3.5-5.1); Protein, Total 7.4 g/dL (5.8-8.1); Sodium 134 mmol/L (136-145)
[2023-09-16 06:20] LABS: Troponin I Less than 0.010 ng/mL (< 0.028)
[2023-09-16 06:35] LABS: Bacteria/HPF None Seen HPF (None Seen); Bilirubin Negative (Negative); Blood, Urine Negative (Negative); CAUTI Indications for Culture Fever or rigors; Clarity Clear (Clear); Glucose, Urine (Dipstick) Normal (Negative); Ketone, Urine Negative (Negative); Leukocyte Negative Leu/uL (Negative); Nitrite Negative (Negative); Protein, Urine (Dipstick) 10 mg/dL (Neg-Trace); RBC/HPF 0-3 HPF (0-3); Specific Gravity, Urine 1.029 (1.002-1.036); Squamous Epithelial 0-3 HPF (0-3); Urobilinogen Greater than 12 mg/dL (Less than 2); WBC/HPF 0-3 HPF (0-3)
[2023-09-16 06:36] LABS: Urine Culture Reflex No No
[2023-09-16] MEDS ORDERED: Iopamidol-370 76% 500 ML MDV (1 ML CHARGE) ONE (12:32)
== END 2023-09-16 09:28 | disposition home or self-care (01) ==
LOC: ERS 05:18
DX: K74.60 Unspecified cirrhosis of liver (principal); R11.2 Nausea with vomiting, unspecified; I10 Essential (primary) hypertension; E11.9 Type 2 diabetes mellitus without complications; F17.210 Nicotine dependence, cigarettes, uncomplicated
CPT/HCPCS: 36416; 74177; 80053; 81001; 83690; 83735; 84484; 85025; 96374; J2405; Q9967

== ENCOUNTER 2024-12-31 06:24 | Emergency (ER) | payer OTHER ==
[2024-12-31] MEDS ORDERED: diphenhydrAMINE 50 MG/ML VIAL ONE (07:58)
[2024-12-31] MEDS ORDERED: Metoclopramide HCl 10 MG (2 mL) VIAL ONE (07:59)
== END 2024-12-31 09:54 | disposition home or self-care (01) ==
LOC: ERS 06:24
DX: R51.9 Headache, unspecified (principal); R29.700 NIHSS score 0; E11.9 Type 2 diabetes mellitus without complications; I25.2 Old myocardial infarction; I10 Essential (primary) hypertension; F17.210 Nicotine dependence, cigarettes, uncomplicated
CPT/HCPCS: 96374; 96375; J1200; J2765